=== PATIENT | male | born 1955 | race Caucasian/White ===

== ENCOUNTER 2017-12-05 11:32 | Inpatient (IN) ==
[2017-12-05] MEDS ORDERED: Aspirin 81 MG TAB.CHEW PO ONE (11:36)
[2017-12-05 11:58] LABS: Basophils # 0.1 K/mcL (0.0-0.2); Basophils % 1.1 %; Eosinophils # 0.8 K/mcL (0.0-0.6); Eosinophils % 9.9 %; Hematocrit 48.1 % (37.5-50.1); Hemoglobin 16.4 g/dL (12.9-16.9); Immature Granulocytes % 0.1 % (0-4); Lymphocytes # 3.3 K/mcL (0.6-4.6); Lymphocytes % 38.1 %; Mean Corpuscular HGB Conc 34.1 g/dL (31.6-35.5); Mean Corpuscular Hemoglobin 30.3 pg (28.0-33.3); Mean Corpuscular Volume 88.9 fL (83.0-100.0); Monocytes # 0.4 K/mcL (0.0-1.3); Monocytes % 4.8 %; Neutrophils # 3.9 K/mcL (1.6-8.9); Platelet Count 253 K/mcL (140-400); Red Blood Count 5.41 M/mcL (4.19-5.50); Red Cell Distribution Width 13.5 % (11.5-14.5)
[2017-12-05 12:12] LABS: Prothrombin Time 11.4 Seconds (9.4-12.1)
[2017-12-05 12:15] LABS: Activated Partial Thrombo Time 32.6 Seconds (26.0-36.0)
[2017-12-05 12:23] LABS: BUN/Creatinine Ratio 16 (6-26); Blood Urea Nitrogen 17 mg/dL (8-23); Calcium 9.7 mg/dL (8.6-10.3); Carbon Dioxide 25 mEq/L (23-29); Chloride 100 mEq/L (98-107); Glucose 153 mg/dL (70-105); Osmolality,Calculated 285 (280-300); Potassium 3.9 mEq/L (3.5-5.1); Sodium 135 mEq/L (136-145); Troponin I < 0.03 ng/mL (< 0.04); eGFR For Non-African Americans > 60 (> 60)
--- NOTE | 2017-12-05 12:40 | Emergency Department Note ---
Disposition Clinical Impression: History of unilateral nephrectomy Chest pain Qualifiers: Chest pain type: unspecified Qualified Code(s): R07.9 - Chest pain, unspecified Disposition: Admitted As Inpatient Condition: Good Time of Disposition: 14:18 General Adult HPI - General Chief complaint: ED Chest Pain Stated complaint: chest pain Time Seen by Provider: 12/05/17 11:35 Source: patient, EMS Mode of arrival: ambulatory Limitations: no limitations Nursing Notes Reviewed: Yes Vital Signs Reviewed: Yes - History of Present Illness HPI Narrative: 62 year old man with pmh significant for DM, HTN, HLD, GERD, and renal cell carcinoma s/p L renal resection who was transferred from [facility] today due to chest pain. He says he has been experiencing mid sternal chest pressure for a number of months with worsening HUSTON. Today, he complained of HUSTON when going up a single flight of stairs, diaphoresis, mid sternal chest pressure with occasional L arm radiation. When seen at [facility] they were concerned for need of possible cardiac cath and transferred here. He denied any diplopia, blurry vision, dizziness/lightheadedness, syncope, cough, N/V, abdominal pain, back pain, neck/jaw pain. He had previous workup this summer at [facility] with a negative lexiscan stress test but 25% pvc 24 hour holter, ECHO EF 55%. He has a long hx of reflux that many medications has worsened. He states the chest pressure does feel similar to this but his HUSTON is worse. Pt Subjective Complaint: chest pressure Onset (ago): hour(s) Location: chest (mid sternal ) Radiation: extremity (L UE) Pain Severity: mild Pain Scale: 2 Quality: other (pressure) Consistency: now resolved Improves with: rest Worsens with: movement Associated symptoms: Reports: diaphoresis, shortness of breath. Denies: cough, nausea/vomiting, syncope - Related Data Home Medications Medication Instructions Recorded Confirmed Aspirin [Adult Aspirin] 81 mg PO DAILY 12/05/17 12/05/17 Ergocalciferol (VITAMIN D2) 2,000 unit PO DAILY 12/05/17 12/05/17 [Vitamin D2] Isosorbide MONOnitrate (24 HR) 30 mg PO DAILY 12/05/17 12/05/17 [Imdur] Metoprolol Succinate [Toprol Xl] 50 mg PO DAILY 12/05/17 12/05/17 Nortriptyline HCl 50 mg PO HS 12/05/17 12/05/17 Omeprazole [PriLOSEC] 40 mg PO DAILY 12/05/17 12/05/17 Potassium Chloride [K-Tab ER] 20 meq PO BID 12/05/17 12/05/17 Simvastatin [Zocor] 20 mg PO HS 12/05/17 12/05/17 Triamterene/HCTZ 37.5/25mg 1 tab PO DAILY 12/05/17 12/05/17 [Dyazide] Allergies Allergy/AdvReac Type Severity Reaction Status Date / Time naproxen AdvReac Gastrointestinal Verified 12/05/17 11:42 Upset NSAIDS (Non-Steroidal AdvReac Gastrointestinal Verified 12/05/17 11:42 Anti-Inflamma Upset valdecoxib [From Bextra] AdvReac Gastrointestinal Verified 12/05/17 11:42 Upset All systems ED: reviewed and negative except as stated. Cardiovascular: Reports: chest pain, dyspnea on exertion. Denies: palpitations , edema, syncope Respiratory: Reports: dyspnea. Denies: cough Gastrointestinal: Denies: abdominal pain, nausea, vomiting Musculoskeletal: Denies: back pain, neck pain Neurological: Denies: weakness, numbness, paresthesias, confusion Psychiatric: Denies: anxiety Past Medical History - Past Medical History Medical history: Reports: cancer, diabetes, hypertension Psychiatric history: Reports: no psych history - Social History Smoking Status: Former smoker Smokeless Tobacco Status: No Alcohol use: Reports: occasionally Drug use: Reports: none Physical Exam - General Limitations: no limitations General appearance: alert, in no apparent distress - Head Head exam: atraumatic, normocephalic, normal inspection - Eye Eye exam: Present: normal appearance - ENT ENT exam: mucous membranes moist - Neck Neck exam: Present: normal inspection, trachea midline - Chest Chest inspection: Present: normal inspection, symmetric chest wall rise - Respiratory Respiratory exam: Present: normal lung sounds bilaterally - Cardiovascular Cardiovascular exam: Present: regular rate, normal rhythm, normal heart sounds, +S1, +S2 - Abdominal Exam Abdominal exam: Present: soft, Non-Tender, incision, hernia. Absent: distention , guarding, rebound, rigidity - Neurological Exam Neurological exam: Present: alert, oriented X3 - Psychiatric Psychiatric exam: Present: normal affect - Skin Skin exam: Present: warm, dry, intact, normal color Course Course Narrative: Previous workup at [facility] with neg lexiscan, and 25% PVC ectopy on 24hr holter. He was transferred from [facility] due to midsternal chest pressure/fullness with worsening HUSTON, diaphoresis, and occasional L arm radiation. He received 1 nitro at [facility]. Will order cardiac workup here along with 325mg ASA and IV pepcid. 1315: ECG nsr, hr 76, borderline repolarization abnormality, st dep but no acute st elevation. Trop neg, BNP 37, still complaining of chest pressure/ fullness. Declined further nitro due to severe OROPEZA when receiving nitro [place]. Will admit to hospitalist service for continued evaluation which they accepted. Vital Signs Temperature 97.5 F L 12/05/17 11:35 Pulse Rate 76 12/05/17 11:35 Respiratory Rate 14 12/05/17 11:35 Blood Pressure 124/97 12/05/17 11:35 O2 Sat by Pulse Oximetry 99 12/05/17 11:35 Temperature 98.2 F 12/05/17 15:11 Pulse Rate 69 12/05/17 15:11 Respiratory Rate 20 12/05/17 15:11 Blood Pressure 133/91 12/05/17 15:11 O2 Sat by Pulse Oximetry 94 12/05/17 15:11 Oxygen Delivery Oxygen Delivery Room Air Medical Decision Making - Lab Data Result diagrams: 12/05/17 11:50 12/05/17 11:50 Lab Results 12/05/17 12/05/17 12/05/17 Range/Units 11:50 11:50 11:50 WBC 8.5 (4.3-11.1) K/mcL RBC 5.41 (4.19-5.50) M/mcL Hgb 16.4 (12.9-16.9) g/dL Hct 48.1 (37.5-50.1) % MCV 88.9 (83.0-100.0) fL MCH 30.3 (28.0-33.3) pg MCHC 34.1 (31.6-35.5) g/dL RDW 13.5 (11.5-14.5) % Plt Count 253 (140-400) K/mcL MPV 10.0 (9.4-12.4) fL Immature Gran % 0.1 (0-4) % Seg Neutrophils % 46.0 % Lymphocytes % 38.1 % Monocytes % 4.8 % Eosinophils % 9.9 % Basophils % 1.1 % Neutrophils # 3.9 (1.6-8.9) K/mcL Lymphocytes # 3.3 (0.6-4.6) K/mcL Monocytes # 0.4 (0.0-1.3) K/mcL Eosinophils # 0.8 H (0.0-0.6) K/mcL Basophils # 0.1 (0.0-0.2) K/mcL PT 11.4 (9.4-12.1) Seconds INR 1.0 APTT 32.6 (26.0-36.0) Seconds Sodium 135 L (136-145) mEq/L Potassium 3.9 (3.5-5.1) mEq/L Chloride 100 (98-107) mEq/L Carbon Dioxide 25 (23-29) mEq/L BUN 17 (8-23) mg/dL Creatinine 1.09 (0.70-1.30) mg/dL Est GFR ( Amer) > 60 (> 60) Est GFR (Non-Af Amer) > 60 (> 60) BUN/Creatinine Ratio 16 (6-26) Glucose 153 H (70-105) mg/dL Calculated Osmolality 285 (280-300) Calcium 9.7 (8.6-10.3) mg/dL Troponin I < 0.03 (< 0.04) ng/mL B-Natriuretic Peptide (Less than 100) pg/mL 12/05/17 Range/Units 11:50 WBC (4.3-11.1) K/mcL RBC (4.19-5.50) M/mcL Hgb (12.9-16.9) g/dL Hct (37.5-50.1) % MCV (83.0-100.0) fL MCH (28.0-33.3) pg MCHC (31.6-35.5) g/dL RDW (11.5-14.5) % Plt Count (140-400) K/mcL MPV (9.4-12.4) fL Immature Gran % (0-4) % Seg Neutrophils % % Lymphocytes % % Monocytes % % Eosinophils % % Basophils % % Neutrophils # (1.6-8.9) K/mcL Lymphocytes # (0.6-4.6) K/mcL Monocytes # (0.0-1.3) K/mcL Eosinophils # (0.0-0.6) K/mcL Basophils # (0.0-0.2) K/mcL PT (9.4-12.1) Seconds INR APTT (26.0-36.0) Seconds Sodium (136-145) mEq/L Potassium (3.5-5.1) mEq/L Chloride (98-107) mEq/L Carbon Dioxide (23-29) mEq/L BUN (8-23) mg/dL Creatinine (0.70-1.30) mg/dL Est GFR ( Amer) (> 60) Est GFR (Non-Af Amer) (> 60) BUN/Creatinine Ratio (6-26) Glucose (70-105) mg/dL Calculated Osmolality (280-300) Calcium (8.6-10.3) mg/dL Troponin I (< 0.04) ng/mL B-Natriuretic Peptide 37 (Less than 100) pg/mL Attestation Statement - Attestation Attestation: I examined this patient and my medical decision-making was reviewed with the Resident Physician, Dr. Taylor. I agree with the documented findings, disposition and treatment plan as described except to the extent set forth below. Patient is a 62-year-old white male history of diabetes, hypertension, hyperlipidemia who presents seem or permit today with complaints of exertional chest pain. Patient's been experiencing these symptoms over the last few days worse with any exertion he notices specifically while climbing stairs at home. Patient was seen and evaluated the [facility] urgent [facility] and was sent here for evaluation. Patient denies any prior known cardiac event or history although he has had stress testing and Holter monitoring in the past. Patient had aspirin and 1 nitroglycerin prior to arrival to the ED with some improvement in his symptoms. I agree with patient's physical exam findings as documented. Vital signs are stable on arrival and he is in no acute distress resting comfortably at bedside during my assessment. ekg shows normal sinus rhythm without acute ischemia. Patient had full lab evaluation including chest x-ray and workup in the emergency department is in remarkable at this time. Initial troponin is negative chest x-rays within normal limits. Patient will be admitted for further evaluation of chest discomfort and case was discussed with hospitalist to accept patient for admission for further eval and management.
[2017-12-05] MEDS ORDERED: Famotidine 20 MG/2 ML VIAL IVP ONE (13:09)
[2017-12-05] MEDS ORDERED: MOM Conc 10 ML UD.LIQ PO PRN (14:02)
[2017-12-05] MEDS ORDERED: OXYCODONE Oral CONC 10 MG/0.5 ML ORAL.SYG SL PRN (14:02)
[2017-12-05] MEDS ORDERED: Naloxone 0.4 MG/ML INJ IVP PRN (14:02)
[2017-12-05] MEDS ORDERED: *HR* HYDROcodone/Acet 5/325 mg TABLET PO PRN (14:02)
[2017-12-05] MEDS ORDERED: Acetaminophen 325 MG TABLET PO PRN (14:02)
[2017-12-05] MEDS ORDERED: Ondansetron 4 MG/2 ML VIAL IVP PRN (14:02)
--- NOTE | 2017-12-05 14:09 | Internal Med History&Physical ---
Date of Encounter: 12/05/17 Time of Encounter: 14:58 Internal Medicine - H&P: HPI History of present illness: 62 year old man with past medical history of diabetes, hypertension, hyperlipidemia, renal cell carcinoma with left renal resection, presented as a transfer from [facility] for further workup of chest pain. Patient states this has been ongoing for several months mostly with exertion. Described as a pressure- like sensation located substernally that does not radiate, and lasts for seconds at a time. He admits to diaphoresis and occasionally palpitations. He denies n/v, orthopnea, edema, headache. He recently had Lexiscan done which patient and states were indeterminate. At [facility], patient received dose of nitro, which he tells me did not alleviate any of his symptoms. On arrival to [facility] patient had EKG showing NSR with ST depressions, no acute ST elevateions. Initial troponin negativ, BNP wnl, chest x-ray shows no acute process. He was given 325 mg aspirin and IV pepcid. Patient states currently he is chest pain free. Past Med Surg Social Fam HX - Past Medical History Medical history: cancer, diabetes, hypertension Psychiatric history: no psych history - Past Surgical History Additional surgical history: kidney removed - Social History Smoking Status: Former smoker Smokeless Tobacco Status: No Alcohol use: occasionally Drug use: none Internal Medicine - H&P: Meds Aspirin [Adult Aspirin] 81 mg PO DAILY 12/05/17 [History] Ergocalciferol (VITAMIN D2) [Vitamin D2] 2,000 unit PO DAILY 12/05/17 [History] Isosorbide MONOnitrate (24 HR) [Imdur] 30 mg PO DAILY 12/05/17 [History] Metoprolol Succinate [Toprol Xl] 50 mg PO DAILY 12/05/17 [History] Nortriptyline HCl 50 mg PO HS 12/05/17 [History] Omeprazole [PriLOSEC] 40 mg PO DAILY 12/05/17 [History] Potassium Chloride [K-Tab ER] 20 meq PO BID 12/05/17 [History] Simvastatin [Zocor] 20 mg PO HS 12/05/17 [History] Triamterene/HCTZ 37.5/25mg [Dyazide] 1 tab PO DAILY 12/05/17 [History] 3 Allergy/AdvReac Type Severity Reaction Status Date / Time naproxen AdvReac Gastrointestinal Verified 12/05/17 11:42 Upset NSAIDS (Non-Steroidal AdvReac Gastrointestinal Verified 12/05/17 11:42 Anti-Inflamma Upset valdecoxib [From Bextra] AdvReac Gastrointestinal Verified 12/05/17 11:42 Upset All Systems PM: A 10-system review of systems was performed and is negative for pertinent findings except as documented above in the HPI. - Constitutional Vitals: Temp Pulse Resp BP Pulse Ox 97.5 F L 74 20 118/87 99 12/05/17 11:35 12/05/17 13:00 12/05/17 13:00 12/05/17 13:00 12/05/17 13:00 General appearance: Present: A&O X 3, no acute distress, obese Exam: . - Head Head exam: Present: atraumatic, normocephalic - Eye Eye exam: Present: PERRL, conjuntiva pink, sclera anicteric Pupils: Present: PERRL - Neck Neck exam general surgery: Present: supple, trachea midline. Absent: lymphadenopathy - Respiratory Respiratory exam: Present: CTAB. Absent: accessory muscle use, rales, rhonchi, wheezes - Cardiovascular Cardiovascular exam: Present: RRR, +S1, +S2. Absent: diastolic murmur, gallop, rubs, systolic murmur - GI/Abdominal GI/Abdominal exam: Present: normal bowel sounds, soft, no peritoneal signs. Absent: distended, tenderness - Extremities Exam Extremities exam: Present: warm, radial pulses palpable and symmetrical. Absent : calf tenderness, cyanotic, pedal edema - Neurological Exam Neurological exam: Present: CN II-XII intact, oriented X3, no focal deficits. Absent: pronater drift, facial droop, speech deficit - Skin Skin exam: Present: dry, intact Internal Med - H&P Results - Labs CBC & Chem 7: 12/05/17 11:50 12/05/17 11:50 - Assessment and plan (1) Chest pain Current Visit: Yes Status: Acute Assessment and plan: rule out ACS - Continue telemetry monitoring - Aspirin daily - Cycle troponin, currently negative x1 here at [facility] - Defer Echocardiogram and Lexiscan as they were recently done. May need C done instead. - Consult Cardiology, make NPO after midnight. - Nitro prn Qualifiers: Chest pain type: unspecified Qualified Code(s): R07.9 - Chest pain, unspecified (2) Hypertension Current Visit: Yes Status: Acute Assessment and plan: Metoprolol, Dyazide Qualifiers: Hypertension type: essential hypertension Qualified Code(s): I10 - Essential (primary) hypertension (3) Diabetes Current Visit: Yes Status: Acute Assessment and plan: No hypoglycemic agents listed on home meds - will do cardiac/diabetic diet with ISS. Qualifiers: Diabetes mellitus type: type 2 Diabetes mellitus group home insulin use: without group home use Diabetes mellitus complication status: without complication Qualified Code(s): E11.9 - Type 2 diabetes mellitus without complications (4) H/O renal cell carcinoma Current Visit: Yes Status: Acute (5) Hyperlipidemia Current Visit: Yes Status: Acute Assessment and plan: Zocor, aspirin, cardiac diet Qualifiers: Hyperlipidemia type: unspecified Qualified Code(s): E78.5 - Hyperlipidemia , unspecified (6) GERD (gastroesophageal reflux disease) Current Visit: Yes Status: Acute Qualifiers: Esophagitis presence: esophagitis presence not specified Qualified Code(s) : K21.9 - Gastro-esophageal reflux disease without esophagitis (7) History of unilateral nephrectomy Current Visit: Yes Status: Acute (8) DVT prophylaxis Current Visit: Yes Status: Acute Assessment and plan: SQ heparin - Time Spent With Patient Total time spent is greater than 50% in coordination of care (as documented) at patient's floor/unit and/or counseling patient:
[2017-12-05] MEDS: Insulin LISPRO 300 UNITS/3 ML VIAL SQ SCH ×2 (17:35→21:26)
[2017-12-05] MEDS: *HR* Heparin 5,000 UNIT/ML VIAL SQ SCH (17:35)
[2017-12-06] MEDS: *HR* Heparin 5,000 UNIT/ML VIAL SQ SCH ×2 (05:23→22:08)
[2017-12-06 06:01] LABS: BUN/Creatinine Ratio 16 (6-26); Blood Urea Nitrogen 17 mg/dL (8-23); Calcium 9.7 mg/dL (8.6-10.3); Carbon Dioxide 23 mEq/L (23-29); Chloride 99 mEq/L (98-107); Glucose 164 mg/dL (70-105); Osmolality,Calculated 287 (280-300); Potassium 3.7 mEq/L (3.5-5.1); Sodium 136 mEq/L (136-145); eGFR For Non-African Americans > 60 (> 60)
[2017-12-06] MEDS: Insulin LISPRO 300 UNITS/3 ML VIAL SQ SCH ×3 (07:29→22:07)
[2017-12-06] MEDS: Aspirin 81 MG TAB.CHEW PO SCH (07:40)
[2017-12-06] MEDS: Metoprolol XL (24 HR) Succ 50 MG TAB.ER.24H PO SCH (07:40)
[2017-12-06] MEDS: Isosorbide MONOnitrate (24 HR) 30 MG TAB.ER.24H PO SCH (07:40)
[2017-12-06] MEDS: Cholecalciferol (D-3) 1,000 UNIT TABLET PO SCH (07:40)
--- NOTE | 2017-12-06 08:59 | Electrocardiograph Report ---
[facility] AngioSlide Test Date: 2017-12-05 Pat Name: Alex Cheatham Department: EXAM2 Room: 3B39 Gender: M Desktop Support Manager: : [id number] Requested By: Dg Wayne Order Number: [id number] Reading MD: Reuben Day Measurements Intervals [place] Rate: 76 P: 29 LA: 165 QRS: -12 QRSD: 104 T: 103 QT: 407 QTc: 458 Interpretive Statements Sinus rhythm Borderline repolarization abnormality Electronically Signed On 12-06-2017 8:57:35 EDT by Reuben Day
--- NOTE | 2017-12-06 11:05 | Cardiology Consult Note ---
Date of Encounter: 12/06/17 Time of Encounter: 11:00 Assessment and Plan (1) Unstable angina Current Visit: Yes Status: Acute Mr. Cheatham presents with the c/o ongoing typical chest pain, SOB, and diaphoresis for three weeks. Symptoms concerning for unstable angina. Troponin negative x3. EKG shows NSR with no acute T/ST wave changes. Stress 09/2016 here was negative for ischemia. Stress test in September at [place] with equivocal results per patient. Cardiac risk factors include HTN, HLD, DM, and prior tobacco use. [facility] recommended for further evaluation. R/B/A of [facility] reviewed. He would like to proceed. Notes solitary kidney. Scr is normal. WIll start IV fluid and mucomyst as a renal protective strategy. (2) History of unilateral nephrectomy Current Visit: Yes Status: Chronic Start mucomyst and IV fluid for renal protective strategy. (3) Hypertension Current Visit: Yes Status: Chronic B/p acceptable. Qualifiers: Hypertension type: essential hypertension Qualified Code(s): I10 - Essential (primary) hypertension Discussion w patient/family: The assessment and plan as outlined above was discussed with the patient and/or family members who expressed understanding and agreement. All questions were answered. Thank you for involving us in the care of your patient. Please call with any questions. History of Present Illness Consult date: 12/06/17 Requesting physician: Kait Dykes Consult reason: Chest pain Chief complaint: chest discomfort History of present illness: Mr. Cheatham is a 62 year old male with past medical history significant for HTN, HLD, DM type II, and prior tobacco use. He transferred from the [facility] hospital with the c/o intermittent chest pressure for the past three weeks. C/o pain and SOB with exertion. States after climbing stairs yesterday he broke out in a cold sweat. He denies prior history of CAD. He underwent stress test at the [facility] in September that was indeterminate. Past Med Surg Social Fam HX - Past Medical History Attestation: Yes The following information was validated with the patient. Source: patient Medical history: cancer, diabetes, hyperlipidemia, hypertension Additional medical history: renal cell cancer Psychiatric history: no psych history - Past Surgical History Additional surgical history: kidney removed - Social History Smoking Status: Former smoker Smokeless Tobacco Status: No Alcohol use: occasionally Drug use: none - Family History Father Living Status: Hx Family Cardiac Disorders: Yes Medications and Allergies Aspirin [Adult Aspirin] 81 mg PO DAILY 12/05/17 [History] Ergocalciferol (VITAMIN D2) [Vitamin D2] 2,000 unit PO DAILY 12/05/17 [History] Isosorbide MONOnitrate (24 HR) [Imdur] 30 mg PO DAILY 12/05/17 [History] Metoprolol Succinate [Toprol Xl] 50 mg PO DAILY 12/05/17 [History] Nortriptyline HCl 50 mg PO HS 12/05/17 [History] Omeprazole [PriLOSEC] 40 mg PO DAILY 12/05/17 [History] Potassium Chloride [K-Tab ER] 20 meq PO BID 12/05/17 [History] Simvastatin [Zocor] 20 mg PO HS 12/05/17 [History] Triamterene/HCTZ 37.5/25mg [Dyazide] 1 tab PO DAILY 12/05/17 [History] 3 Allergy/AdvReac Type Severity Reaction Status Date / Time naproxen AdvReac Gastrointestinal Verified 12/05/17 11:42 Upset NSAIDS (Non-Steroidal AdvReac Gastrointestinal Verified 12/05/17 11:42 Anti-Inflamma Upset valdecoxib [From Bextra] AdvReac Gastrointestinal Verified 12/05/17 11:42 Upset All Systems Review: The remainder of the systems were reviewed and are negative Physical Examination Vital Signs, Last 4 Hours Temp Pulse Resp BP Pulse Ox 12/06/17 10:58 98.7 F 68 15 122/78 95 General: Conversant, No Apparent Distress HEENT: Atraumatic, Normocephaly, Mucus Membranes Moist Neck: No JVD, Normal carotid pulses Cardiac: Reg Rate and Rhythm, Normal S1 and S2, No Murmur Lungs: Normal Breath Sounds, No Wheeze, Rales, Rhonchi Neuro: Alert and responsive, No focal deficits noted Abdomen: Soft, Non-Tender Skin: No rashes noted on visualized skin Musculoskeletal: No Chest Wall Tenderness Extremities: No Clubbing, No Cyanosis, No Edema, Normal Pulses Results 12/05/17 11:50 12/06/17 04:17 Lab Results 12/05/17 12/06/17 17:45 04:17 Sodium 136 Potassium 3.7 Chloride 99 Carbon Dioxide 23 BUN 17 Creatinine 1.07 Glucose 164 H Calcium 9.7 Troponin I < 0.03 - Imaging and Cardiology Stress Test: report reviewed Echo: report reviewed - EKG Interpretation EKG results cardiology: personally reviewed Consult Discharge Plan - Plan [facility]errals: [facility] [Primary Care Provider] -
[2017-12-06] MEDS: 0.9 % Sodium Chloride 1,000 ML IVC SCH ×3 (12:46→22:30)
--- NOTE | 2017-12-06 13:06 | Internal Med Progress Note ---
Hospitalist Progress Note - Encounter Date of Encounter: 12/06/17 Time of Encounter: 13:04 - Exam Vitals: Temp Pulse Resp BP Pulse Ox 98.7 F 68 15 122/78 95 12/06/17 10:58 12/06/17 10:58 12/06/17 10:58 12/06/17 10:58 12/06/17 10:58 Exam: . - Assessment and Plan (1) Chest pain Current Visit: Yes Status: Acute Assessment and Plan: rule out ACS - Continue telemetry monitoring - Aspirin daily - Cycle troponin, currently negative x1 here at [facility] - Defer Echocardiogram and Lexiscan as they were recently done. May need LHC done instead. - Consult Cardiology, make NPO after midnight. - Nitro prn 12/06: patient agrees to [facility], anticipate today (2) Hypertension Current Visit: Yes Status: Chronic Assessment and Plan: Metoprolol, Dyazide (3) Diabetes Current Visit: Yes Status: Acute Assessment and Plan: No hypoglycemic agents listed on home meds - will do cardiac/diabetic diet with ISS. (4) H/O renal cell carcinoma Current Visit: Yes Status: Acute (5) Hyperlipidemia Current Visit: Yes Status: Acute Assessment and Plan: Zocor, aspirin, cardiac diet (6) GERD (gastroesophageal reflux disease) Current Visit: Yes Status: Acute (7) History of unilateral nephrectomy Current Visit: Yes Status: Chronic (8) DVT prophylaxis Current Visit: Yes Status: Acute Assessment and Plan: SQ heparin - Time Spent with Patient Total time spent is greater than 50% in coordination of care (as documented) at patient's floor/unit and/or counseling patient: Internal Medicine: Result - Labs CBC & Chem 7: 12/05/17 11:50 12/06/17 04:17 Labs: BMP 12/06/17 04:17 Sodium 136 Potassium 3.7 Chloride 99 Carbon Dioxide 23 BUN 17 Creatinine 1.07 Glucose 164 H Calcium 9.7 Cardiac Enzymes 12/05/17 Range/Units 17:45 Troponin I < 0.03 (< 0.04) ng/mL - ABG Interpretation ABG results: PT/INR, D-dimer PT 11.4 Seconds (9.4-12.1) 12/05/17 11:50 Consult Discharge Plan - Plan [facility]errals: [facility] [Primary Care Provider] - (1) Chest pain Qualifiers: Chest pain type: unspecified Qualified Code(s): R07.9 - Chest pain, unspecified (2) Hypertension Qualifiers: Hypertension type: essential hypertension Qualified Code(s): I10 - Essential (primary) hypertension (3) Diabetes Qualifiers: Diabetes mellitus type: type 2 Diabetes mellitus intermodal owner operator truck driver insulin use: without intermodal owner operator truck driver use Diabetes mellitus complication status: without complication Qualified Code(s): E11.9 - Type 2 diabetes mellitus without complications (5) Hyperlipidemia Qualifiers: Hyperlipidemia type: unspecified Qualified Code(s): E78.5 - Hyperlipidemia, unspecified (6) GERD (gastroesophageal reflux disease) Qualifiers: Esophagitis presence: esophagitis presence not specified Qualified Code(s): K21.9 - Gastro-esophageal reflux disease without esophagitis
[2017-12-06] MEDS ORDERED: 0.9 % Sodium Chloride 1,000 ML ONE (16:16)
[2017-12-06] MEDS ORDERED: Heparin 1,000 UNITS/500 mL 500 ML ONE (16:16)
[2017-12-06] MEDS ORDERED: ISOVUE-370 200 ML INFUS..BTL IV ONE (16:17)
[2017-12-06] MEDS ORDERED: *HR* Heparin 10,000 UNIT/10 ML VIAL ONE (16:17)
[2017-12-06] MEDS ORDERED: Nitroglycerin 1,000 MCG/10 ML VIAL IV ONE (16:17)
[2017-12-06] MEDS ORDERED: *HR* Midazolam HCl 2 MG/2 ML VIAL ONE (16:46)
--- NOTE | 2017-12-06 16:47 | Pre-Sedation Evaluation ---
Pre-sedation evaluation - Pre-sedation checklist Date of procedure: 12/06/17 Procedure: [facility] Recent Vitals: Last Vital Signs Temp 98.7 F 12/06/17 10:58 Pulse 68 12/06/17 10:58 Resp 15 12/06/17 10:58 BP 122/78 12/06/17 10:58 Pulse Ox 95 12/06/17 10:58 H&P (including ROS) documented in medical record: Yes Previous reaction to sedatives/anesthetics: No Dietary Status: NPO after Midnight Airway Assessment: Patient can open mouth completely, TMJ function normal Dentition: No loose teeth or bridges Possible difficult airway: No ASA Classification *see protocol: CLASS III-Severe systemic disease Cardiac Registry (Cardio Only) - Functional Capacity Functional Capacity: >=4 METS without symptoms - Clincal Frailty Scale Clinical Frailty Scale: Well
[2017-12-06] MEDS ORDERED: *HR* Ticagrelor 90 MG TABLET ONE (17:32)
--- NOTE | 2017-12-06 18:19 | Invasive Diagnostic Lab Proc ---
Name: Alex Cheatham Date of Study: 12/06/2017 Date: 1955 Ht: 72.8in Medical Record#: [id number] Age: 62 Wt: 253.53lb Gender: Male BSA: 2.38 Order #: [id number] BMI: 33.6 Physicians Procedure Physician: Mitch Edwards DO Referring MD: Referring MD: Staff Name Position Time In Ketan Knox RN Cut And Print Machine Operator 04:44 PM Eliceo Chandler RN Monitor 04:44 PM Sites, Elaine RT (R) Scrub 04:44 PM Indications Indication Unstable Angina Procedures Performed Procedure L HRT ARTERY/VENTRICLE ANGIO PRQ CARD TWIN STENT W/ANGIO 1 VSL Pre-Procedure Checklist Informed consent is complete signed and on chart. H&P is on chart. ID band is on and ID verified with patient. Patient NPO for procedure The procedure was described for the patient and questions were answered. Blood Pressure: 142/87 ECG is on chart. Rhythm: NSR Plan of Care Patient will tolerate the procedure without complications. Adequate level of comfort will be maintained. Hemodynamics will remain stable Patient will recover from procedure without complications. Respiratory function will be maintained. Cardiac rhythm will remain stable. Patient temperature will be maintained. Patient and/or family have verbalized understanding of the procedure. Patient Education Chief Complaint/Reason for Test: Cardiac Cath Developmental Category: Adult (18-64 years) Developmentally Appropriate for Age: Yes Learning Barriers: None Education Needs: Procedure Education Method: Verbal Information Taught: Cardiac Cath Educational Evaluation: Able to repeat information Intravenous Access Time IV Size Location DC'd Fluid/Drip Rate Units RN 20g 1 03/08" Patent On Arrival Rt Hand 0.9NaCl Ketan Knox RN Allergies NSAIDS (Non-Steroidal Anti-Inflamma naproxen valdecoxib Vital Signs Time BP (mmHg) HR (bpm) O2 Sat. RR (bpm) LOC 04:45 PM / % 5 = Fully awake and oriented or at pre-proc level 04:51 PM / % 5 = Fully awake and oriented or at pre-proc level 04:51 PM / % 4 = Oriented but drowsy 04:48 PM 111 / 93 79 98 % 14 04:53 PM 123 / 105 90 100 % 13 04:59 PM 154 / 100 85 96 % 21 05:03 PM 150 / 94 84 96 % 36 05:08 PM 146 / 94 86 94 % 30 05:13 PM 147 / 128 87 96 % 20 05:14 PM 158 / 112 83 96 % 30 05:20 PM 133 / 100 100 95 % 16 05:40 PM 134 / 91 86 96 % 20 5 = Fully awake and oriented or at pre-proc level 06:00 PM 147 / 109 84 94 % 18 5 = Fully awake and oriented or at pre-proc level 06:10 PM 156 / 82 84 95 % 18 5 = Fully awake and oriented or at pre-proc level Procedural Medications Time Medication Dose Units Method Given By 04:45 PM Oxygen 2 L/min nasal cannula Ketan Knox RN 04:50 PM Oxygen 2 L/min nasal cannula Ketan Knox RN 04:50 PM Versed 2 mg Intravenous Ketan Knox RN 05:02 PM Lidocaine 2% 10 ml Subcutaneous Mitch Edwards DO 05:12 PM Heparin 4000 units Intravenous Ketan Knox RN 05:17 PM Nitroglycerin 200 mcg Intracoronary Mitch Edwards DO 05:22 PM Brilinta 180 mg Orally Ketan Knox RN ASA Classification: CLASS III- Severe systemic disease (i.e. prior AMI, diabetes with vascular complications, morbid obesity) Chan Score Preprocedure Postprocedure Activity 2- Moves 4 extremities sustained head lift Activity 2- Moves 4 extremities sustained head lift Circulation 2- SBP +/= 20 points of pre-anesthetic level Circulation 2- SBP +/= 20 points of pre-anesthetic level Consciousness 2- Awake and alert oriented x 3 Consciousness 2- Awake and alert oriented x 3 O2 Saturation 2- Able to maintain O2 satruation of 92% on room air O2 Saturation 2- Able to maintain O2 satruation of 92% on room air Respiratory 2- Able to deep breathe and cough well Respiratory 2- Able to deep breathe and cough well Total Score 10 Total Score 10 Contrast Agent: Isovue Diagnostic Contrast: 70 ml Total Contrast: 70 ml Fluoro Dose: 7323 mGy Activated Clotting Time Time Seconds to Clot 05:12 PM 91 05:26 PM 205 Procedure Log Time Note Enter By 04:42 PM CathStat 04:43 PM Vitals capture started with the following parameters, Patient=Adult, Interval=5 min, Initial Jfrgiafu=161 mmHg, Deflation Rate=5 mmHg, Cuff placed on Right Arm 04:44 PM Pt arrived to outside laborer 2 at 16:44 [facility] 04:44 PM Ketan Knox RN Position: Cut And Print Machine Operator [facility]: 16:44 [facility] 04[facility]44 PM Eliceo Chandler RN Position: Monitor Time in: :44 [facility] 04:44 PM Diane, Elaine RT (R) Position: Scrub Time in: 16:44 [facility] 04:44 PM Patient charges- Angio tray pack, Navilyst 3mm J, Pulse Oximetry and ACIST tubing and transducer [facility] 04:45 PM Hair removed from procedure site in holding area using clippers. Bilateral groin prepped with Chloraprep by Ketan Knox RN, then patient was draped. Skin intact. [facility] 04:45 PM Physician arrived 16:45 [facility] :45 PM Meet and greet completed [facility] :45 PM Sign in performed according to hospital policy. Informed consent was obtained. [facility] 04:45 PM Procedure start 16:45 [facility] :45 PM Time: 16:45 Patient comfortable and pain free: Yes [facility] :45 PM Time: 16:45LOC: 5 = Fully awake and oriented or at pre-proc level [facility] 04:45 PM Time: 16:45 Oxygen on at 2 L/min per nasal cannula by Ketan Knox RN [facility] 04:47 PM Case Start 04:47 PM Vitals capture started with the following parameters, Patient=Adult, Interval=5 min, Initial Qptdkrez=888 mmHg, Deflation Rate=5 mmHg, Cuff placed on Right Arm 04:48 PM HR=79 bpm, CUDD=978/93 mmhg, SpO2=98 %, Resp=14 B/min 04:50 PM Time: 16:50 Oxygen on at 2 L/min per nasal cannula by Ketan Knox RN [place] 04:51 PM Time: 16:50 Versed 2 mg Intravenous Given by Ketan Knox RN [place] 04:51 PM Time: 16:51 Patient comfortable and pain free: Yes [place] 04:51 PM Time: 16:51LOC: 5 = Fully awake and oriented or at pre-proc level [place] 04:53 PM HR=90 bpm, BHBI=316/105 mmhg, RbW9=819 %, Resp=13 B/min 04:54 PM Recorded ECG: HR=85 Condition=Condition 1 04:57 PM ASA Class CLASS III- Severe systemic disease (i.e. prior AMI, diabetes with vascular complications, morbid obesity) ced 04:57 PM Clinical Presentation: Unstable angina cedwards 04:59 PM HR=85 bpm, AXLT=885/100 mmhg, SpO2=96.0 %, Resp=21 B/min 05:01 PM Time out was performed according to hospital policy. Conscious sedation and anesthesia was achieved (see medication log with in this report above) ced 05:03 PM Time: 17:02 10 ml Lidocaine 2% to right groin Subcutaneous Given by Mitch Edwards DO ced 05:03 PM HR=84 bpm, AMSZ=114/94 mmhg, SpO2=96.0 %, Resp=36 B/min 05:03 PM Micro-Introducer Kit utilized for sheath placement cedwards 05:04 PM Access obtained by percutaneous puncture. 6Fr 10cm Terumo [place] sheath placed in right Femoral artery. [id number] cedwards 05:05 PM 6Fr FR 4 catheter inserted over the wire [facility] ced 05:05 PM 0.035 145cm Navilyst 3mmJ wire [id number] cedwards 05:05 PM Catheter crossed the aortic valve and was selectively placed in the left ventricle. Pressures recorded on pullback for left heart catheterization. cedwards 05:06 PM Recorded Pressure: LV, HR=85, Condition=Condition 1 (Left Ventricle) LV 51/-1/0 05:06 PM Recorded Pressure: LV, Ao, HR=93, Condition=Condition 1 (Left Ventricle) LV 122/-10/6, (Aorta) Ao 123/58/90 05:06 PM Time: 16:51LOC: 4 = Oriented but drowsy cedwards 05:06 PM Time: 16:51 Patient comfortable and pain free: Yes cedwards 05:06 PM Catheter crossed the aortic valve and was selectively placed in the left ventricle. Pressures recorded on pullback for left heart catheterization. ced 05:06 PM Bolus angiogram of left Ventricle complete: hand injection cedwards 05:07 PM RCA angiography performed in multiple views. cedwards 05:07 PM Catheter removed cedwards 05:07 PM 6Fr FL 4 catheter inserted over the wire [facility] cedwards 05:07 PM Recorded Pressure: Ao, HR=85, Condition=Condition 1 (Aorta) Ao 138/84/108 05:08 PM LCA angiography performed in multiple views. cedwards 05:08 PM HR=86 bpm, DIAH=185/94 mmhg, SpO2=94.0 %, Resp=30 B/min 05:09 PM Catheter removed cedwards 05:10 PM Coronary Dominance: right cedwards 05:11 PM 6Fr JL4 Runway guide catheter was used to cannulate the PCI vessel successfully. reused? No cedwards 05:11 PM .014 ChoICE PT Extra Support 300cm guide wire across target lesion- successful. reused? No cedwards 05:12 PM At 17:12 the ACT was 91 seconds. cedwards 05:12 PM Time: 17:12 Heparin 4000 units Intravenous Given by Ketan Knox RN cedwards 05:13 PM Inflation device was opened. cedwards 05:13 PM HR=87 bpm, BHIQ=506/128 mmhg, SpO2=96.0 %, Resp=20 B/min 05:14 PM 3.5mm x 15mm Cordis EluNIR drug-eluting stent across target lesion- successful Lot #[id number] cedwards 05:14 PM Vitals capture stopped. 05:14 PM Vitals capture started with the following parameters, Patient=Adult, Interval=5 min, Initial Glmjcpuk=322 mmHg, Deflation Rate=5 mmHg, Cuff placed on Right Arm 05:14 PM HR=83 bpm, XYTP=934/112 mmhg, SpO2=96.0 %, Resp=30 B/min 05:14 PM Lesion found in Mid LAD. Pre Stenosis: 85 Pre KARINA Flow: 3: Complete and Brisk Flow/Perfusion cedwards 05:16 PM Stent deployed @ 14 keith for 20 seconds cedwards 05:17 PM Recorded Pressure: Ao, HR=85, Condition=Condition 1 (Aorta) Ao 68/68/68 05:17 PM Recorded Pressure: Ao, HR=82, Condition=Condition 1 (Aorta) Ao 148/89/116 05:17 PM Stent delivery system removed intact. cedwards 05:17 PM Time: 17:17 Nitroglycerin 200 mcg Intracoronary Given by Mitch Edwards DO cedwards 05:18 PM Guide wire removed intact. cedwards 05:19 PM Guide catheter removed intact. cedwards 05:19 PM Angiogram of right groin performed cedwards 05:20 PM LP=036 bpm, FZUI=218/100 mmhg, SpO2=95.0 %, Resp=16 B/min 05:22 PM Time: 17:06 Patient comfortable and pain free: Yes cedwards 05:22 PM Time: 17:22 Brilinta 180 mg Orally Given by Ketan Knox RN cedwards 05:22 PM Procedure completed at 17:22 12/06/2017 cedwards 05:22 PM Did you address KARINA flow and Dominance? Yes cedwards 05:23 PM Sign out completed: Radiation Dose 749 mGy, 7322.72 cGy/cm2 Fluoro Time: 3.6 Isovue 370 - 200ml contrast 70 ml given by Mitch Edwards DO. Complications: None. 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 Cardiac Rehab Consult needed: YesConfirmed administered medications: Yes cedwards 05:23 PM Isovue 370 - 200ml,1 Bottle(s) used. cedwards 05:23 PM Sheath left in place to be pulled on floor/holding areaV+Pad cedwards 05:23 PM Estimated Blood Loss: minimal cedwards 05:23 PM Post ECG NSR cedwards 05:23 PM Post Blood Pressure 133/100 cedwards 05:23 PM Information taught Cardiac Cath and PCI cedwards 05:24 PM 17:24 Post Pulses Bilateral DP 1+ cedwards 05:24 PM Information taught Cardiac Cath and PCI cedwards 05:24 PM Education needs Procedure, Plan of Care, and Disease Process cedwards 05:24 PM Learning barriers :None cedwards 05:24 PM Education Methods Verbal cedwards 05:24 PM Education evaluation Able to repeat information cedwards 05:24 PM Site status No bleeding/hematoma - Rt Groin as reported by Sites, Elaine RT (R) at 17:24 cedwards 05:24 PM Opsite applied cedwards 05:26 PM Report given to Clint SAM Pt taken to Holding room Room #4. 17:25 cedwards 05:26 PM At 17:26 the ACT was 205 seconds. cedwards 05:26 PM Family placed in consult room. cedwards 05:26 PM Complications: None cedwards 05:37 PM Time: 17:22 Patient comfortable and pain free: Yes cedwards 06:06 PM report called to Eduard Live RN mprater 06:11 PM Delay to floor Bed availability kwitte 06:11 PM Report given to Justine SAM Pt taken to Holding room Room #[id number]. 18:11 kwitte 06:11 PM Complications: None kwitte 06:11 PM Patient out of room: 18:11 kwitte Complications Complication None None None Hemodynamics Pressures Site Systolic/A Wave Diastolic/V Wave Mean LV 51 -1 0 LV 122 -10 6 AO 123 58 90 AO 138 84 108 AO 68 68 68 AO 148 89 116 Post Procedure Information Blood Pressure: 133/100 mmHg Rhythm: NSR Post procedural instructions were given Site Checks Time Location Status Staff Sheath In? Note 05:24 PM Rt Groin No bleeding/hematoma Sites, Elaine RT (R) Yes 05:40 PM Rt Groin No bleeding/ No Hematoma Clint Live RN Yes 06:00 PM Rt Groin No bleeding/ No Hematoma Teressa Johnston RN Yes 06:10 PM Rt Groin No bleeding/ No Hematoma Clint Live RN Yes Pulses Time Site Pre-Procedure Post-Procedure Note Bilateral DP & PT 1+ Bilateral radial 2+ 5:24:00 PM Bilateral DP 1+ 12/06/2017 5:40:00 PM Bilateral DP 1+ 12/06/2017 6:00:00 PM Bilateral DP 1+ Updated by Clint Live RN on 12/06/2017 6:12:13 PM Clint Live RN electronically signed on 12/06/2017 6:12:36 PM with status of Final
[2017-12-06] MEDS ORDERED: *HR* Atropine Sulfate 1 MG/10 ML SYRINGE ONE (20:01)
[2017-12-06] MEDS: Nitroglycerin 0.4 MG TAB.SUBL SL PRN ×3 (21:27→22:19)
[2017-12-06] MEDS ORDERED: *HR* Morphine 2 MG/ML SYRINGE IVP ONE (21:30)
[2017-12-06] MEDS ORDERED: *HR* Metoprolol 5 MG/5 ML VIAL IVP ONE ×2 (21:33→21:42)
[2017-12-06] MEDS ORDERED: *HR* LORazepam 0.5 MG TABLET PO ONE (22:28)
[2017-12-06] MEDS ORDERED: *HR* LORazepam 0.5 MG TABLET ONE (22:37)
--- NOTE | 2017-12-06 23:01 | Event Note ---
<Júnior Pinedo - Last Filed: 12/06/17 22:52> Date of Encounter: 12/06/17 Time of Encounter: 22:52 At approximately 9:35 PM I was alerted by the FILM COLOR TESTER and nurse that the patient was having chest pain and hypertension. Patient had returned from [facility] at approximately 5:30 PM this afternoon where he had a single stent placed to the mid LAD. Upon evaluation the patient was having substernal chest pain that he described as an aching pressure and did report that it felt different than his initial chest pain. He rated this pain 5 out of 10. He also reported feeling like he had to urinate severely. Full catheter was placed and approximately 1 L of urine was returned. Systolic blood pressure was noted to be in the 160s, previously it had been in the 190s and patient had received 10 mg of hydralazine prior to my arrival. EKG was obtained and previous EKGs were reviewed including the presentation EKG as well as an EKG performed at 645, and another one at 8:30 PM. EKGs revealed worsening ST depression of the lateral leads particularly V3 through V6. Given the patient's symptoms and EKG findings we are concern for myocardial ischemia. The case was discussed with the attending physician Dr. Traylor and at that time we contacted the per diem interpreter, Dr. Edwarsd. Dr. Edwards recommended that we treat his chest pain with sublingual nitroglycerin and Lopressor 5 mg IV and call him back in 15 minutes. Pressor was given which improved the patient's blood pressure and after initial sublingual nitrate dose his chest pain had initially resolved but then quickly returned however he did state that it was improved from previous, he rated it a 1-2 out of 10. Patient received 2 more doses of sublingual nitroglycerin however his pain was unchanged and remained about a 1 out of 10. During this time. 2 more EKGs were obtained which were unchanged from previous and continued to show ST depression approximately 4 mm in leads V3 through V6. At this point the attending physician, Dr. Traylor, transmitted the EKGs to Dr. Edwards for him to review and spoke to him. He recommended pulling the patient's right groin catheter sheath and in 4 hours starting low-dose heparin infusion per [facility] protocol. Dr. Edwards also recommended treating anxiety with lorazepam, he was given lorazepam 0.5 mg orally. We will continually monitor the patient's symptoms and if patient has worsening chest pain will discuss further with interventional cardiology. <Calvin Traylor - Last Filed: 12/07/17 00:06> Date of Encounter: 12/07/17 I discussed the case with Dr. Pinedo, and shortly after his discussion with me , I came to the bedside and assessed the patient. I reviewed his EKGs and assessed and reassessed the patient several times. I also spoke with Dr. Edwards a couple times and transmitted EKG to him for his review as well. He agrees with my concerns and states that we can continue to control his chest pain and start heparin drip 4 hours after pulling the sheath. Presently, patient's chest pain is 1 out of 10, and he feels much better after the nitroglycerin. I spoke with patient's nurse, patient, and with Dr. Edwards as well. If patient has any worsening chest pain or unstable angina, I will call Dr. Edwards back for further guidance and advice. Presently, however, patient feels much better and he is steadily improving.
[2017-12-07] MEDS: *HR* Acetylcysteine 20% 600 MG/3 ML ORAL SYRINGE PO SCH ×4 (00:17→21:45)
[2017-12-07] MEDS: *HR* Ticagrelor 90 MG TABLET PO SCH ×3 (00:31→21:43)
[2017-12-07] MEDS ORDERED: Heparin 25,000 UNIT/500 ML D5W 25,000 UNIT/500 ML BAG IVC SCH (03:00)
[2017-12-07] MEDS ORDERED: *HR* Heparin 5,000 UNIT/ML VIAL IVP PRN ×2 (03:00)
[2017-12-07] MEDS ORDERED: *HR* Heparin 5,000 UNIT/ML VIAL IVP ONE (03:00)
[2017-12-07] MEDS: Insulin LISPRO 300 UNITS/3 ML VIAL SQ SCH ×5 (03:09→21:43)
[2017-12-07 04:41] LABS: Basophils # 0.1 K/mcL (0.0-0.2); Basophils % 0.7 %; Eosinophils # 0.3 K/mcL (0.0-0.6); Eosinophils % 2.7 %; Hematocrit 47.6 % (37.5-50.1); Hemoglobin 16.7 g/dL (12.9-16.9); Immature Granulocytes % 0.4 % (0-4); Lymphocytes # 2.4 K/mcL (0.6-4.6); Lymphocytes % 23.1 %; Mean Corpuscular HGB Conc 35.1 g/dL (31.6-35.5); Mean Corpuscular Hemoglobin 30.6 pg (28.0-33.3); Mean Corpuscular Volume 87.3 fL (83.0-100.0); Mean Platelet Volume 10.2 fL (9.4-12.4); Monocytes # 0.6 K/mcL (0.0-1.3); Monocytes % 5.7 %; Platelet Count 232 K/mcL (140-400); Red Blood Count 5.45 M/mcL (4.19-5.50); Red Cell Distribution Width 13.6 % (11.5-14.5); Segmented Neutrophils % 67.4 %
[2017-12-07 05:52] LABS: BUN/Creatinine Ratio 13 (6-26); Blood Urea Nitrogen 13 mg/dL (8-23); Calcium 9.6 mg/dL (8.6-10.3); Carbon Dioxide 21 mEq/L (23-29); Chloride 98 mEq/L (98-107); Glucose 171 mg/dL (70-105); Osmolality,Calculated 284 (280-300); Potassium 3.4 mEq/L (3.5-5.1); Sodium 135 mEq/L (136-145); eGFR For Non-African Americans > 60 (> 60)
[2017-12-07] MEDS: Aspirin 81 MG TAB.CHEW PO SCH (07:53)
[2017-12-07] MEDS: Isosorbide MONOnitrate (24 HR) 30 MG TAB.ER.24H PO SCH (07:53)
[2017-12-07] MEDS: Metoprolol XL (24 HR) Succ 50 MG TAB.ER.24H PO SCH (07:53)
[2017-12-07] MEDS: Cholecalciferol (D-3) 1,000 UNIT TABLET PO SCH (07:53)
[2017-12-07] MEDS: 0.9 % Sodium Chloride 1,000 ML IVC SCH ×3 (09:15→21:32)
--- NOTE | 2017-12-07 10:35 | Event Note ---
Date of Encounter: 12/07/17 Time of Encounter: 10:30 - Cardiology Event Note S/p LHC for unstable angina. He received PCI to his LAD. Unfortunately. last night he developed recurrent chest pain and elevated b/p. EKG completed showed new ST depression in the anteriolateral leads. He was started on heparin gtt. Chest pain resolved overnight. C/o feeling very tired. LHC films reviewed by interventional cardiology. Recommended to have repeat LHC due to symptom and concerning EKG changes. R/B/A of LHC reviewed. Patient agrees to proceed. Continue asa, statin, brilinta, and BB.
--- NOTE | 2017-12-07 11:54 | Internal Med Progress Note ---
Hospitalist Progress Note - Encounter Date of Encounter: 12/07/17 Time of Encounter: 11:57 - Subjective Interval History: 42-year-old male with medical history of hypertension and solitary kidney, hyperlipidemia type 2 diabetes mellitus ex-smoker who was admitted for unstable angina. Patient received left heart catheterization yesterday 12/06, with stent placement. Later in the night, developed new onset chest pain with uncontrolled blood pressure and new EKG changes ST depressions which were not present on admitting EKG. Saw Boss was reconsulted and recommended to start the patient on heparin drip. He also developed acute urinary retention, with placement of Ayala catheter that yielded 1200 mL of urine. Evaluated at the bedside this morning. He complains of fatigue from not having slept overnight, he also complained of hematuria. Cardiology plans to repeat [facility] tonight. - Exam Vitals: Temp Pulse Resp BP Pulse Ox 98.0 F 87 18 136/92 97 12/07/17 11:52 12/07/17 11:52 12/07/17 11:52 12/07/17 11:52 12/07/17 11:52 Exam: Gen: Laying flat in bed, in no form of distress HEENT: Moist oral mucosa, not cyanotic Chest: CTAB CVS: HR and BP WNL, S1, S2 only, no m/g/r Abdomen: Flat, soft, not tender, no palpably enlarged organs Extremities: No pedal edema Neuro : AAoX3, no focal deficits - Assessment and Plan (1) History of unilateral nephrectomy Current Visit: Yes Status: Chronic Assessment and Plan: Continue IV fluid hydration for renal protective strategy. Repeat Mucomyst today prior to left heart catheter. Avoid nephrotoxins. Continue to monitor renal function daily. (2) Hypertension Current Visit: Yes Status: Chronic Assessment and Plan: Now controlled. Continue Dyazide, isosorbide, metoprolol. Continue to monitor. (3) Diabetes Current Visit: Yes Status: Chronic Assessment and Plan: Continue correctional dose insulin. FS Q6H while patient is NPO (4) H/O renal cell carcinoma Current Visit: Yes Status: Acute Assessment and Plan: as in nephrectomy (5) Hyperlipidemia Current Visit: Yes Status: Chronic Assessment and Plan: Zocor, aspirin, cardiac diet (6) GERD (gastroesophageal reflux disease) Current Visit: Yes Status: Chronic Assessment and Plan: continue PPIS (7) DVT prophylaxis Current Visit: Yes Status: Acute Assessment and Plan: ON infusion of heparin (8) Unstable angina Current Visit: Yes Status: Acute Assessment and Plan: Presented with typical cardiac chest pain, elevated troponins, left heart catheter done with mid LAD lesion that was stented. Patient continued to have chest pain last night, with new EKG changes of ST depression. Continue aspirin, Brilinta, heparin, statin Cardiology following and plan for repeat LHC today. (9) Hematuria Current Visit: Yes Status: Acute Assessment and Plan: likely due to ayala placement, continue to monitor, monitor Hb, patient is on heparin drip - Time Spent with Patient Total time spent is greater than 50% in coordination of care (as documented) at patient's floor/unit and/or counseling patient: Plan of Care Discussed with: patient Internal Medicine: Result - Labs CBC & Chem 7: 12/07/17 03:48 12/07/17 03:48 Labs: Short CBC 12/07/17 Range/Units 03:48 WBC 10.4 (4.3-11.1) K/mcL Hgb 16.7 (12.9-16.9) g/dL Hct 47.6 (37.5-50.1) % Plt Count 232 (140-400) K/mcL Neutrophils # 7.0 (1.6-8.9) K/mcL BMP 12/07/17 03:48 Sodium 135 L Potassium 3.4 L Chloride 98 Carbon Dioxide 21 L BUN 13 Creatinine 0.99 Glucose 171 H Calcium 9.6 - ABG Interpretation ABG results: PT/INR, D-dimer PT 11.4 Seconds (9.4-12.1) 12/05/17 11:50 Consult Discharge Plan - Plan Referrals: Mitch Edwards DO [Partnered Physician] - (Office will call patient at home with follow up appointment) [facility] - 12/18/17 10:15 am (Red Team Please fax discharge summary to [phone]) (2) Hypertension Qualifiers: Hypertension type: essential hypertension Qualified Code(s): I10 - Essential (primary) hypertension (3) Diabetes Qualifiers: Diabetes mellitus type: type 2 Diabetes mellitus regional intermodal truck driver insulin use: without senior living use Diabetes mellitus complication status: without complication Qualified Code(s): E11.9 - Type 2 diabetes mellitus without complications (5) Hyperlipidemia Qualifiers: Hyperlipidemia type: unspecified Qualified Code(s): E78.5 - Hyperlipidemia, unspecified (6) GERD (gastroesophageal reflux disease) Qualifiers: Esophagitis presence: esophagitis presence not specified Qualified Code(s): K21.9 - Gastro-esophageal reflux disease without esophagitis (9) Hematuria Qualifiers: Hematuria type: unspecified type Qualified Code(s): R31.9 - Hematuria, unspecified
[2017-12-07] MEDS ORDERED: 0.9 % Sodium Chloride 1,000 ML ONE ×2 (14:22→14:49)
[2017-12-07] MEDS ORDERED: Heparin 1,000 UNITS/500 mL 500 ML ONE (14:23)
[2017-12-07] MEDS ORDERED: ISOVUE-370 200 ML INFUS..BTL IV ONE (14:23)
[2017-12-07] MEDS ORDERED: *HR* Heparin 10,000 UNIT/10 ML VIAL ONE (14:23)
[2017-12-07] MEDS ORDERED: Nitroglycerin 1,000 MCG/10 ML VIAL IV ONE (14:23)
[2017-12-07] MEDS ORDERED: *HR* Midazolam HCl 2 MG/2 ML VIAL ONE (14:49)
[2017-12-07] MEDS ORDERED: *HR* FentaNYL (PF) 100 MCG/2 ML VIAL ONE (14:49)
--- NOTE | 2017-12-07 14:59 | Pre-Sedation Evaluation ---
Pre-sedation evaluation - Pre-sedation checklist Date of procedure: 12/07/17 Procedure: left heart cath Recent Vitals: Last Vital Signs Temp 98.0 F 12/07/17 11:52 Pulse 87 12/07/17 11:52 Resp 18 12/07/17 11:52 BP 136/92 12/07/17 11:52 Pulse Ox 97 12/07/17 11:52 H&P (including ROS) documented in medical record: Yes Previous reaction to sedatives/anesthetics: No Dietary Status: No solid food in preceding 4 hrs and no liquid in preceding 2 hrs Dentition: No loose teeth or bridges ASA Classification *see protocol: CLASS II-Mild systemic disease Plan of Care: Pt appropriate candidate for procedure/moderate/conscious sedation , Risks/benefits of procedure/sedation discussed w/ patient/family Cardiac Registry (Cardio Only) - Functional Capacity Functional Capacity: >=4 METS with symptoms - Clincal Frailty Scale Clinical Frailty Scale: Managing Well
--- NOTE | 2017-12-07 16:12 | Invasive Diagnostic Lab Proc ---
Name: Alex Cheatham Date of Study: 12/07/2017 Date: 1955 Ht: 72.8in Medical Record#: [id number] Age: 62 Wt: 248.46lb Gender: Male BSA: 2.36 Order #: [id number] BMI: 32.93 Physicians Procedure Physician: Gregorio Deshpande MD, [facility] Referring MD: Referring MD: Staff Name Position Time In Rosemarie Gonzales RT Monitor 02:58 PM Nathan Salinas RT (R) Scrub 02:58 PM Isabel Burrell RN Ux Ui Designer 02:58 PM Indications Indication Unstable Angina Procedures Performed Procedure PRQ CARD TWIN STENT W/ANGIO 1 VSL PRQ CARDIAC ANGIO ADDL ART Pre-Procedure Checklist Informed consent is complete signed and on chart. H&P is on chart. ID band is on and ID verified with patient. Patient NPO for procedure The procedure was described for the patient and questions were answered. Blood Pressure: 129/99 ECG is on chart. Rhythm: NSR Plan of Care Patient will tolerate the procedure without complications. Adequate level of comfort will be maintained. Hemodynamics will remain stable Patient will recover from procedure without complications. Respiratory function will be maintained. Cardiac rhythm will remain stable. Patient temperature will be maintained. Patient and/or family have verbalized understanding of the procedure. Patient Education Chief Complaint/Reason for Test: Cardiac Cath Developmental Category: Adult (18-64 years) Developmentally Appropriate for Age: Yes Learning Barriers: None Education Needs: Procedure Education Method: Verbal Information Taught: Cardiac Cath Educational Evaluation: Able to repeat information Intravenous Access Time IV Size Location DC'd Fluid/Drip Rate Units RN 20g 1 /" Patent On Arrival Rt Hand 0.9NaCl Allergies NSAIDS (Non-Steroidal Anti-Inflamma naproxen valdecoxib Hydralazine Vital Signs Time BP (mmHg) HR (bpm) O2 Sat. RR (bpm) LOC 03:00 PM / % 5 = Fully awake and oriented or at pre-proc level 03:00 PM / % 4 = Oriented but drowsy 03:15 PM / % 4 = Oriented but drowsy 03:24 PM 135 / 101 78 95 % 31 03:29 PM 137 / 91 78 98 % 19 03:34 PM 143 / 72 78 94 % 19 03:39 PM 133 / 86 83 93 % 16 02:54 PM 161 / 118 74 99 % 16 02:59 PM 129 / 99 82 97 % 22 03:04 PM 138 / 103 79 95 % 13 03:09 PM 143 / 104 77 96 % 37 03:14 PM 124 / 98 87 94 % 17 03:19 PM 124 / 97 77 96 % 33 Procedural Medications Time Medication Dose Units Method Given By 02:59 PM Oxygen 2 L/min nasal cannula Isabel Burrell RN 02:59 PM Versed 2 mg Intravenous Isabel Burrell RN 02:59 PM Fentanyl 50 mcg Intravenous Isabel Burrell RN 03:04 PM Lidocaine 2% 20 ml Subcutaneous Gregorio Deshpande MD, FACC 03:10 PM Nitroglycerin 150 mcg Intracoronary Gregorio Deshpande MD 03:12 PM Heparin 3000 units Intravenous Isabel Burrell RN 03:34 PM Nitroglycerin 150 mcg Intracoronary Gregorio Deshpande MD ASA Classification: CLASS II- Mild systemic disease (i.e. well-controlled diabetes, hypertension, asthma, cigarette smoking) Chan Score Preprocedure Postprocedure Activity 2- Moves 4 extremities sustained head lift Activity 2- Moves 4 extremities sustained head lift Circulation 2- SBP +/= 20 points of pre-anesthetic level Circulation 2- SBP +/= 20 points of pre-anesthetic level Consciousness 2- Awake and alert oriented x 3 Consciousness 2- Awake and alert oriented x 3 O2 Saturation 2- Able to maintain O2 satruation of 92% on room air O2 Saturation 2- Able to maintain O2 satruation of 92% on room air Respiratory 2- Able to deep breathe and cough well Respiratory 2- Able to deep breathe and cough well Total Score 10 Total Score 10 Contrast Agent: Isovue Diagnostic Contrast: 131 ml Total Contrast: 131 ml Fluoro Dose: 4237 mGy Activated Clotting Time Time Seconds to Clot 03:24 PM 170 03:46 PM 189 Procedure Log Time Note Enter By 02:24 PM 2.5mm x 17mm Cordis EluNIR drug-eluting stent across target lesion- successful Lot #[id number] MID LAD [email or web address] 02:53 PM CathStat 02:53 PM Vitals capture started with the following parameters, Patient=Adult, Interval=5 min, Initial Sxlmiidr=038 mmHg, Deflation Rate=5 mmHg, Cuff placed on Right Arm 02:54 PM HR=74 bpm, XTLG=130/118 mmhg, SpO2=99.0 %, Resp=16 B/min, EtCO2=35 mmHg, Comment=NSR 02:58 PM Pt arrived to medical lab tech instructor 2 at 14:58 kkner :58 PM Rosemarie Gonzales Position: Monitor Time in: :58 :58 PM Nathan Salinas RT (R) Position: Scrub Time in: :58 :58 PM Isabel Burrell RN Position: Ux Ui Designer Time in: :58 :58 PM Patient charges- Angio tray pack, Navilyst 3mm J, Pulse Oximetry and ACIST tubing and transducer kkall:58 PM Case Delayed No kk:58 PM Hair removed from procedure site in procedure lab using clippers. Bilateral groin prepped with Chloraprep by Rosemarie Gonzales, then patient was draped. Skin intact. kkall:58 PM Physician arrived 14:58 ner :59 PM ASA Class CLASS II- Mild systemic disease (i.e. well-controlled diabetes, hypertension, asthma, cigarette smoking) kkallner :59 PM Meet and greet completed :59 PM Sign in performed according to hospital policy. Informed consent was obtained. kkallner :59 PM Meet and greet completed :59 PM Procedure start 14:59 kk:59 PM HR=82 bpm, WMKU=202/99 mmhg, SpO2=97.0 %, Resp=22 B/min 02:59 PM Time: 14:59 Oxygen on at 2 L/min per nasal cannula by Isabel Burrell RN :59 PM Time: 14:59 Versed 2 mg Intravenous Given by Isabel Burrell RN cheryle :59 PM Time: 14:59 Fentanyl 50 mcg Intravenous Given by Isabel Burrell RN carissa 03:00 PM Time: 15:00 Patient comfortable and pain free: Yes [email or web address] 03:00 PM Time: 15:00LOC: 5 = Fully awake and oriented or at pre-proc level kkallner 03:00 PM Clinical Presentation: Unstable angina kkallner 03:04 PM HR=79 bpm, DGRI=519/103 mmhg, SpO2=95.0 %, Resp=13 B/min 03:04 PM Time out was performed according to hospital policy. Conscious sedation and anesthesia was achieved (see medication log with in this report above) kkallner 03:04 PM Time: 15:04 20 ml Lidocaine 2% to right groin Subcutaneous Given by Gregorio Deshpande MD, [facility] [email or web address] 03:05 PM Access obtained by percutaneous puncture. 6Fr 10cm Terumo [place] sheath placed in right Femoral artery. [id number] kkallner 03:08 PM act drawn kkallner 03:08 PM Pressure channel 1 zero failed. 03:08 PM Bolus angiogram of right Femoral complete: 4 ml/sec for a total of 7 mls kkallner 03:08 PM 6Fr CLS 3.5 Runway guide catheter was used to cannulate the PCI vessel successfully. reused? No kkallner 03:08 PM wire removed kkallner 03:09 PM HR=77 bpm, GINF=714/104 mmhg, SpO2=96.0 %, Resp=37 B/min 03:10 PM LCA angiography performed in multiple views. [email or web address] 03:10 PM Time: 15:10 Nitroglycerin 150 mcg Intracoronary Given by Gregorio Deshpande MD kkallner 03:10 PM At 15:24 the ACT was 170 seconds. [email or web address] 03:11 PM .014 Blue Sky 190cm guide wire across target lesion- successful. reused? No kkallner 03:11 PM Inflation device was opened. kkallner 03:12 PM .014 PT Graphix 182cm guide wire across target lesion- successful. reused? No kkallner 03:12 PM Time: 15:12 Heparin 3000 units Intravenous Given by Isabel Burrell RN kkallner 03:14 PM HR=87 bpm, PMWW=545/98 mmhg, SpO2=94.0 %, Resp=17 B/min 03:15 PM Time: 15:00 Patient comfortable and pain free: Yes kkallner 03:15 PM Time: 15:00LOC: 4 = Oriented but drowsy kkallner 03:16 PM 2.5 mm x 6 mm Eminence balloon across target lesion- successful. reused? No Blue Sky Wire kkallner 03:17 PM 2.25 mm x 12 mm Emerge Monorail balloon across target lesion- successful. reused? No PT Graphix kkallner 03:19 PM Balloon inflated @ 10 keith for 18 seconds Emerge balloon kkallner 03:19 PM HR=77 bpm, BJPD=732/97 mmhg, SpO2=96.0 %, Resp=33 B/min 03:19 PM Emerge Balloon catheter removed intact. kkallner 03:20 PM Balloon inflated @ 10 keith for 30 seconds kkallner 03:23 PM Balloon catheter removed intact. [email or web address] 03:24 PM HR=78 bpm, ANLA=549/101 mmhg, SpO2=95.0 %, Resp=31 B/min 03:26 PM Recorded Pressure: Ao, HR=78, Condition=Condition 1 (Aorta) Ao 132/97/114 03:28 PM Stent deployed @ 12 keith for 28 seconds kkallner 03:29 PM HR=78 bpm, EMAO=173/91 mmhg, SpO2=98.0 %, Resp=19 B/min 03:29 PM Stent balloon reinflated @ 18 keith for 15 seconds kkallner 03:30 PM Time: 15:15 Patient comfortable and pain free: Yes kkallner 03:30 PM wire removed kkallner 03:32 PM Time: 15:15LOC: 4 = Oriented but drowsy kkallner 03:32 PM Stent delivery system removed intact. kkallner 03:33 PM 3.5 mm x 6mm NC Emerge balloon across target lesion- successful. reused? No kkallner 03:33 PM Balloon inflated @ 12 keith for 16 seconds kkallner 03:34 PM Time: 15:34 Nitroglycerin 150 mcg Intracoronary Given by Gregorio Deshpande MD kkallner 03:34 PM HR=78 bpm, ZLWE=718/72 mmhg, SpO2=94.0 %, Resp=19 B/min 03:35 PM Recorded Pressure: Ao, HR=85, Condition=Condition 1 (Aorta) Ao 86/72/80 03:36 PM wire and balloon removed kkallner 03:38 PM Procedure completed at 15:38 12/07/2017 [email or web address] 03:38 PM Did you address KARINA flow and Dominance? Yes kkallner 03:39 PM HR=83 bpm, RILN=171/86 mmhg, SpO2=93.0 %, Resp=16 B/min 03:39 PM Sign out completed: Radiation Dose 673.94 mGy, 4236.87 Gy/cm2 Fluoro Time: 7.6 Isovue 370 - 200ml contrast 131 ml given by Gregorio Deshpande MD, FACC. Complications: None. The patient was discharged out of the engineering lab technician in stable condition. Cardiac Rehab Consult needed: YesConfirmed administered medications: Yes kkallner 03:42 PM Isovue 370 - 200ml,1 Bottle(s) used. kkallner 03:42 PM Sheath left in place to be pulled on floor/holding area kkallner 03:42 PM Estimated Blood Loss: minimal kkallner 03:43 PM Post ECG NSR kkallner 03:43 PM Post Blood Pressure 133/86 kkallner 03:43 PM 15:43 Post Pulses Bilateral DP & PT 1+ kkallner 03:43 PM Information taught Cardiac Cath and PCI kkallner 03:43 PM Education needs Procedure, Plan of Care, and Responsibilities of Patient in Care kkallner 03:43 PM Learning barriers :None kkallner 03:43 PM Education Methods Verbal kkallner 03:43 PM Education evaluation Able to repeat information kkallner 03:43 PM Site status No bleeding/hematoma - Rt Groin as reported by Nathan Salinas RT (R) at 15:43 kkallner 03:43 PM Opsite applied kkallner 03:45 PM Report given to Michael RN Pt taken to 2N Room #13. 15:43 kkallner 03:46 PM Plavix, Effient or Brilinta given No Pt given Brillinta by kkallner 03:46 PM Delay to floor No kkallner 03:46 PM Patient out of room: 15:46 kkallner 03:46 PM Family placed in consult room. [email or web address] 03:46 PM Complications: None kkallner 03:46 PM At 15:46 the ACT was 189. seconds. (redrawn) kkallner 03:48 PM new ACT 184 kkallner 03:52 PM Lesion found in 1st Diagonal. Pre Stenosis: 70 Pre KARINA Flow: 3: Complete and Brisk Flow/Perfusion kkallner 03:53 PM Lesion found in Mid LAD. Pre Stenosis: 95 Pre KARINA Flow: 3: Complete and Brisk Flow/Perfusion kkallner 03:53 PM Left Main Coronary Artery with 0% stenosis kkallner 03:53 PM Proximal Left Anterior Descending Coronary Artery with 0% stenosis. If graft is supplying this territory, 0 % stenosis. kkallner 03:53 PM Mid/Distal Left Anterior Descending Coronary Artery and diagonal branches with 95% stenosis. If graft is supplying this area, 0 % stenosis kkallner 03:53 PM Circumflex, Obtuse Marginal, Left Posterior Descending, and Left Posterolateral Coronary Arteries with 0 % stenosis. If graft is supplying this area, 0 % stenosis kkallner 03:53 PM Right Coronary, Right Posterior Descending Arteries with Right Posterolateral and Acute Marginal branches with 0 % stenosis. If graft is supplying this area, 0 % stenosis kkallner 03:53 PM Ramus with 0% stenosis. If graft is supplying this area, 0 % stenosis kkallner Complications Complication None None Hemodynamics Pressures Site Systolic/A Wave Diastolic/V Wave Mean AO 132 97 114 AO 86 72 80 Post Procedure Information Blood Pressure: 133/86 mmHg Rhythm: NSR Post procedural instructions were given Site Checks Time Location Status Staff Sheath In? Note 03:43 PM Rt Groin No bleeding/hematoma Nathan Salinas RT (R) Yes Pulses Time Site Pre-Procedure Post-Procedure Note Bilateral DP & PT 1+ 3:43:00 PM Bilateral DP & PT 1+ Updated by Rosemarie Gonzales, RT (R) on 12/07/2017 4:00:58 PM electronically signed on 12/07/2017 4:03:17 PM with status of Final
[2017-12-07] MEDS ORDERED: *HR* Atropine Sulfate 1 MG/10 ML SYRINGE ONE (16:44)
[2017-12-07] MEDS: amLODIPine 5 MG TABLET PO SCH (21:42)
[2017-12-08] MEDS: 0.9 % Sodium Chloride 1,000 ML IVC SCH ×3 (02:00→21:37)
[2017-12-08 05:18] LABS: Basophils # 0.1 K/mcL (0.0-0.2); Basophils % 0.6 %; Eosinophils # 0.5 K/mcL (0.0-0.6); Eosinophils % 4.9 %; Hematocrit 46.3 % (37.5-50.1); Hemoglobin 15.6 g/dL (12.9-16.9); Immature Granulocytes % 0.3 % (0-4); Lymphocytes # 2.7 K/mcL (0.6-4.6); Lymphocytes % 28.8 %; Mean Corpuscular HGB Conc 33.7 g/dL (31.6-35.5); Mean Corpuscular Hemoglobin 30.6 pg (28.0-33.3); Mean Corpuscular Volume 90.8 fL (83.0-100.0); Monocytes # 0.7 K/mcL (0.0-1.3); Monocytes % 7.1 %; Neutrophils # 5.4 K/mcL (1.6-8.9); Platelet Count 206 K/mcL (140-400); Red Cell Distribution Width 14.1 % (11.5-14.5); Segmented Neutrophils % 58.3 %
[2017-12-08 05:30] LABS: BUN/Creatinine Ratio 11 (6-26); Blood Urea Nitrogen 14 mg/dL (8-23); Calcium 9.5 mg/dL (8.6-10.3); Carbon Dioxide 24 mEq/L (23-29); Chloride 104 mEq/L (98-107); Glucose 131 mg/dL (70-105); Osmolality,Calculated 284 (280-300); Sodium 136 mEq/L (136-145); eGFR For Non-African Americans 59 (> 60)
[2017-12-08] MEDS: Insulin LISPRO 300 UNITS/3 ML VIAL SQ SCH ×4 (08:02→21:40)
[2017-12-08] MEDS: *HR* Ticagrelor 90 MG TABLET PO SCH ×2 (08:08→21:39)
[2017-12-08] MEDS: Metoprolol XL (24 HR) Succ 50 MG TAB.ER.24H PO SCH (08:08)
[2017-12-08] MEDS: Aspirin 81 MG TAB.CHEW PO SCH (08:08)
[2017-12-08] MEDS: Isosorbide MONOnitrate (24 HR) 30 MG TAB.ER.24H PO SCH (08:08)
[2017-12-08] MEDS: amLODIPine 5 MG TABLET PO SCH (08:08)
[2017-12-08] MEDS: Cholecalciferol (D-3) 1,000 UNIT TABLET PO SCH (08:08)
[2017-12-08] MEDS: *HR* Acetylcysteine 20% 600 MG/3 ML ORAL SYRINGE PO SCH ×2 (08:09→21:39)
[2017-12-08] MEDS ORDERED: 0.9 % Sodium Chloride 1,000 ML IVC ONE (08:13)
--- NOTE | 2017-12-08 09:28 | Internal Med Progress Note ---
Hospitalist Progress Note - Encounter Date of Encounter: 12/08/17 Time of Encounter: 09:26 - Subjective Interval History: 42-year-old male with medical history of hypertension and solitary kidney, hyperlipidemia type 2 diabetes mellitus ex-smoker who was admitted for unstable angina. Patient received left heart catheterization yesterday 12/06, with stent placement. Later in the night 12/06, developed new onset chest pain with uncontrolled blood pressure and new EKG changes ST depressions which were not present on admitting EKG. Specifications Writer was reconsulted and recommended to start the patient on heparin drip. He also developed acute urinary retention, with placement of Jean catheter that yielded 1200 mL of urine. He then underwent snother LHC with placement of more stents He is chest pain free and has no complains this a.m His GFR is lower than baseline today, we will give additional 1L bolus, and continue maintenance - Exam Vitals: Temp Pulse Resp BP Pulse Ox 97.6 F 83 18 128/68 98 12/08/17 07:19 12/08/17 07:19 12/08/17 07:19 12/08/17 07:19 12/08/17 07:19 Exam: Gen: Laying flat in bed, in no form of distress HEENT: Moist oral mucosa, not cyanotic Chest: CTAB CVS: HR and BP WNL, S1, S2 only, no m/g/r Abdomen: Flat, soft, not tender, no palpably enlarged organs Extremities: No pedal edema Neuro : AAoX3, no focal deficits - Assessment and Plan (1) History of unilateral nephrectomy Current Visit: Yes Status: Chronic Assessment and Plan: Continue IV fluid hydration for renal protective strategy. give additional 1L IVF this am, patient's GFR slightly lower (2) Hypertension Current Visit: Yes Status: Chronic Assessment and Plan: Now controlled. Continue Dyazide, isosorbide, metoprolol. Continue to monitor. (3) Diabetes Current Visit: Yes Status: Chronic Assessment and Plan: Continue correctional dose insulin. FS Q6H while patient is NPO (4) H/O renal cell carcinoma Current Visit: Yes Status: Acute Assessment and Plan: as in nephrectomy (5) Hyperlipidemia Current Visit: Yes Status: Chronic Assessment and Plan: Zocor, aspirin, cardiac diet (6) GERD (gastroesophageal reflux disease) Current Visit: Yes Status: Chronic Assessment and Plan: continue PPIS (7) DVT prophylaxis Current Visit: Yes Status: Acute Assessment and Plan: ambulate patient (8) Unstable angina Current Visit: Yes Status: Acute Assessment and Plan: Presented with typical cardiac chest pain, elevated troponins, left heart catheter done with mid LAD lesion that was stented. Patient continued to have chest pain last night, with new EKG changes of ST depression. Continue aspirin, Brilinta, BB, statin Cardiology following s/p repat [facility] 12/08 with stent placement. (9) Hematuria Current Visit: Yes Status: Resolved Assessment and Plan: resolved - Time Spent with Patient Total time spent is greater than 50% in coordination of care (as documented) at patient's floor/unit and/or counseling patient: Plan of Care Discussed with: patient Internal Medicine: Result - Labs CBC & Chem 7: 12/08/17 04:28 12/08/17 04:28 Labs: Short CBC 12/08/17 Range/Units 04:28 WBC 9.3 (4.3-11.1) K/mcL Hgb 15.6 (12.9-16.9) g/dL Hct 46.3 (37.5-50.1) % Plt Count 206 (140-400) K/mcL Neutrophils # 5.4 (1.6-8.9) K/mcL BMP 12/08/17 04:28 Sodium 136 Potassium 4.0 Chloride 104 Carbon Dioxide 24 BUN 14 Creatinine 1.23 Glucose 131 H Calcium 9.5 - ABG Interpretation ABG results: PT/INR, D-dimer PT 11.4 Seconds (9.4-12.1) 12/05/17 11:50 Consult Discharge Plan - Plan Referrals: Mitch Edwards DO [Partnered Physician] - (Office will call patient at home with follow up appointment) [place],PC[place] [Primary Care Provider] - 12/18/17 10:15 am (Red Team Please fax discharge summary to [phone]) (2) Hypertension Qualifiers: Hypertension type: essential hypertension Qualified Code(s): I10 - Essential (primary) hypertension (3) Diabetes Qualifiers: Diabetes mellitus type: type 2 Diabetes mellitus intermediate insulin use: without meterman use Diabetes mellitus complication status: without complication Qualified Code(s): E11.9 - Type 2 diabetes mellitus without complications (5) Hyperlipidemia Qualifiers: Hyperlipidemia type: unspecified Qualified Code(s): E78.5 - Hyperlipidemia, unspecified (6) GERD (gastroesophageal reflux disease) Qualifiers: Esophagitis presence: esophagitis presence not specified Qualified Code(s): K21.9 - Gastro-esophageal reflux disease without esophagitis (9) Hematuria Qualifiers: Hematuria type: unspecified type Qualified Code(s): R31.9 - Hematuria, unspecified
--- NOTE | 2017-12-08 10:59 | Cardiology Progress Note ---
Date of Encounter: 12/08/17 Time of Encounter: 10:30 Assessment and Plan (1) Unstable angina Current Visit: Yes Status: Acute Mr. Cheatham presents with the c/o ongoing typical chest pain, SOB, and diaphoresis for three weeks. Symptoms concerning for unstable angina. Troponin negative x3. EKG shows NSR with no acute T/ST wave changes. Stress 2016 here was negative for ischemia.Stress test in September at [facility] with equivocal results per patient. Cardiac risk factors include HTN, HLD, DM, and prior tobacco use. LHC 12/06/17: successful PTCA/TWIN in the mLAD; EF 55% Patient developed recurrent chest pain with ECG changes 10 PM and was taken back to the soap slabber the following day. LHC 12/07/17: successful PTCA/TWIN mLAD; and PTCA to diagonal (jailed vessel); otherwise no significant CAD. Emphasized the importance of uninterrupted DAPT (asa + brilinta) for a minimum of 1 year--savings card provided. Otherwise, continue statin, BB, and nitrates. Post PCI education/limitations discussed. Will coordinate outpatient follow-up with Dr. Deshpande in 1-2 weeks. Cardiology will sign-off. (2) H/O renal cell carcinoma Current Visit: Yes Status: Acute Hx of solitary kidney s/p renal ca SCr stable, GFR lower than baseline. Has been given IVF bolus by primary service. Follows with Dr. Mcclendon as outpatient. Discussion w patient/family: The assessment and plan as outlined above was discussed with the patient and/or family members who expressed understanding and agreement. All questions were answered. Thank you for involving us in the care of your patient. Please call with any questions. The patient will be discussed and reviewed with Dr. Yordan gonzales to be made accordingly. Subjective Principal diagnosis: UA Interval history: Seen and examined. No chest pain/arm/shoulder discomfort described. No dyspnea or shortness of breath. Reports he feels the best he has in years. No issues with right groin cath site. Objective Vital Signs, Last 4 Hours Temp Pulse Resp BP Pulse Ox 12/08/17 07:19 97.6 F 83 18 128/68 98 General: Conversant, No Apparent Distress HEENT: Atraumatic, Normocephaly, Mucus Membranes Moist Neck: No JVD, Normal carotid pulses Cardiac: Reg Rate and Rhythm, Normal S1 and S2, No Murmur Lungs: Normal Breath Sounds, No Wheeze, Rales, Rhonchi Neuro: Alert and responsive, No focal deficits noted Abdomen: Soft, Non-Tender Skin: No rashes noted on visualized skin Musculoskeletal: No Chest Wall Tenderness Extremities: No Clubbing, No Cyanosis, No Edema, Normal Pulses Other: right groin cath site: site stable, mild-moderate amount of ecchymosis at site, small, quarter sized hematoma present with well approximated borders. +2 distal pulses. Results 12/08/17 04:28 12/08/17 04:28 Lab Results 12/08/17 12/08/17 04:28 04:28 WBC 9.3 Hgb 15.6 Hct 46.3 Plt Count 206 Sodium 136 Potassium 4.0 Chloride 104 Carbon Dioxide 24 BUN 14 Creatinine 1.23 Glucose 131 H Calcium 9.5 Active Medications Acetaminophen (Tylenol) 650 mg PO Q6HR PRN PRN Reason: Mild Pain/Fever Stop: 06/06/18 14:03 Last Admin: 12/07/17 16:28 Dose: 650 mg Hydrocodone Bitart/Acetaminophen ([place] 5-325 Mg) 1 tab PO Q6HR PRN PRN Reason: Moderate Pain Stop: 06/06/18 14:03 Acetylcysteine (Acetylcysteine 20%) 600 mg PO BID [facility] Stop: 06/07/18 10:31 Last Admin: 12/08/17 08:09 Dose: 600 mg Amlodipine Besylate (Norvasc) 5 mg PO DAILY [facility] PRN Reason: Protocol Stop: 06/08/18 20:01 Last Admin: 12/08/17 08:08 Dose: 5 mg Aspirin (Aspirin) 81 mg PO DAILY [facility] Stop: 06/07/18 09:01 Last Admin: 12/08/17 08:08 Dose: 81 mg Sodium Chloride (0.9 % Sodium Chloride) 1,000 mls @ 100 mls/hr IVC .Q10H [facility] Stop: 06/07/18 17:31 Last Admin: 12/08/17 02:00 Dose: 100 mls/hr Insulin Human Lispro (Humalog) 0 units SQ HS NAFISA PRN Reason: Protocol Stop: 06/06/18 21:01 Last Admin: 12/07/17 21:43 Dose: Not Given Insulin Human Lispro (Humalog) 0 units SQ TIDWM NAFISA PRN Reason: Protocol Stop: 06/06/18 17:01 Last Admin: 12/08/17 08:02 Dose: Not Given Isosorbide Mononitrate (Imdur) 30 mg PO DAILY [facility] Stop: 06/07/18 09:01 Last Admin: 12/08/17 08:08 Dose: 30 mg Magnesium Hydroxide (Milk Of Magnesia Conc) 10 ml PO DAILY PRN PRN Reason: Constipation Stop: 06/06/18 14:03 Metoprolol Succinate (Toprol Xl) 50 mg PO DAILY [facility] Stop: 06/07/18 09:01 Last Admin: 12/08/17 08:08 Dose: 50 mg Naloxone HCl (Narcan) 0.4 mg IVP Q2MIN PRN PRN Reason: SEE COMMENTS Stop: 06/06/18 14:03 Nitroglycerin (Nitroglycerin) 0.4 mg SL Q5MIN PRN PRN Reason: Chest Pain Stop: 06/06/18 14:44 Last Admin: 12/06/17 22:19 Dose: 0.4 mg Nortriptyline HCl (Pamelor) 50 mg PO HS [facility] Stop: 06/06/18 21:01 Last Admin: 12/07/17 21:43 Dose: 50 mg Omeprazole (Prilosec) 40 mg PO 0630 [facility] Stop: 06/07/18 06:31 Last Admin: 12/07/17 05:05 Dose: 40 mg Ondansetron HCl (Zofran) 4 mg IVP Q8HR PRN PRN Reason: Nausea And Vomiting Stop: 06/06/18 14:03 Oxycodone HCl (Oxycodone Oral Conc) 5 mg SL Q6HR PRN; Protocol PRN Reason: Severe Pain Stop: 06/06/18 14:03 Potassium Chloride (Potassium Chloride) 20 meq PO BID [facility] Stop: 06/06/18 21:01 Last Admin: 12/08/17 09:46 Dose: Not Given Rosuvastatin Calcium (Crestor) 40 mg PO HS [facility] Stop: 06/08/18 21:01 Last Admin: 12/07/17 21:42 Dose: 40 mg Ticagrelor (Brilinta) 90 mg PO BID [facility] Stop: 06/07/18 21:01 Last Admin: 12/08/17 08:08 Dose: 90 mg Triamterene/HCTZ (Dyazide) 1 each PO DAILY [facility] Stop: 06/07/18 09:01 Last Admin: 12/08/17 08:08 Dose: 1 each Vitamin D (Vitamin D) 1,000 unit PO DAILY [facility] Stop: 06/07/18 09:01 Last Admin: 12/08/17 08:08 Dose: 1,000 unit - Imaging and Cardiology Other Results: 12 hour tele: avg HR=83 SR> - EKG Interpretation EKG results cardiology: personally reviewed Consult Discharge Plan - Plan Referrals: Mitch Edwards DO [Partnered Physician] - (Office will call patient at home with follow up appointment) [facility],PCP [Primary Care Provider] - 12/18/17 10:15 am (Red Team Please fax discharge summary to [phone])
[2017-12-09 05:22] LABS: BUN/Creatinine Ratio 14 (6-26); Blood Urea Nitrogen 13 mg/dL (8-23); Calcium 9.3 mg/dL (8.6-10.3); Carbon Dioxide 19 mEq/L (23-29); Chloride 105 mEq/L (98-107); Glucose 159 mg/dL (70-105); Osmolality,Calculated 281 (280-300); Potassium 3.9 mEq/L (3.5-5.1); Sodium 134 mEq/L (136-145); eGFR For Non-African Americans > 60 (> 60)
[2017-12-09 07:03] VITALS: BP 122/77
[2017-12-09] MEDS: 0.9 % Sodium Chloride 1,000 ML IVC SCH (07:41)
[2017-12-09] MEDS: Insulin LISPRO 300 UNITS/3 ML VIAL SQ SCH (07:55)
[2017-12-09] MEDS: Cholecalciferol (D-3) 1,000 UNIT TABLET PO SCH (07:58)
[2017-12-09] MEDS: *HR* Acetylcysteine 20% 600 MG/3 ML ORAL SYRINGE PO SCH (07:59)
[2017-12-09] MEDS: *HR* Ticagrelor 90 MG TABLET PO SCH (07:59)
[2017-12-09] MEDS: Metoprolol XL (24 HR) Succ 50 MG TAB.ER.24H PO SCH (07:59)
[2017-12-09] MEDS: Aspirin 81 MG TAB.CHEW PO SCH (07:59)
[2017-12-09] MEDS: amLODIPine 5 MG TABLET PO SCH (07:59)
[2017-12-09] MEDS: Isosorbide MONOnitrate (24 HR) 30 MG TAB.ER.24H PO SCH (07:59)
--- NOTE | 2017-12-09 09:07 | Discharge Summary ---
- NOTES TO OUTPATIENT PROVIDER Notes to Outpatient Provider: 62 M with MH of CAD, HTN, HLD who was admitted for management of Unstable angina, he is s/p [facility] with stent placement. He has a solitary kidney and his renal function remained stabe throughout admission with IVF hydration and acetycysteine. He is now on Brilnta and ASA , zocor has been discontinued and chnaged to crestor for his HLD, amlodipine has also been added to home regimen for HTN. Follow up with PCP and cardiology, tobacco cessation counselling encouraged Orders not resulted at time of discharge: Pending orders 12/06/17 21:09 EKG [ECG 12 lead ECG] [ECG] Stat 12/07/17 07:00 ECG 12 lead ECG [ECG] Routine 12/10/17 04:00 Chem 7 [Basic Metabolic Panel] AM 0400 Date of Encounter: 12/09/17 Time of Encounter: 09:06 - Discharge Diagnosis (1) History of unilateral nephrectomy Priority: Secondary Status: Chronic (2) Hypertension Priority: Secondary Status: Chronic Qualifiers: Hypertension type: essential hypertension Qualified Code(s): I10 - Essential (primary) hypertension (3) Diabetes Priority: Secondary Status: Chronic Qualifiers: Diabetes mellitus type: type 2 Diabetes mellitus vermin exterminator insulin use: without vermin exterminator use Diabetes mellitus complication status: without complication Qualified Code(s): E11.9 - Type 2 diabetes mellitus without complications (4) H/O renal cell carcinoma Priority: Secondary Status: Chronic (5) Hyperlipidemia Priority: Secondary Status: Chronic Qualifiers: Hyperlipidemia type: unspecified Qualified Code(s): E78.5 - Hyperlipidemia , unspecified (6) GERD (gastroesophageal reflux disease) Priority: Secondary Status: Chronic Qualifiers: Esophagitis presence: esophagitis presence not specified Qualified Code(s) : K21.9 - Gastro-esophageal reflux disease without esophagitis (7) DVT prophylaxis Priority: Primary Status: Resolved (8) Unstable angina Priority: Primary Status: Resolved (9) Hematuria Priority: Primary Status: Resolved Qualifiers: Hematuria type: unspecified type Qualified Code(s): R31.9 - Hematuria, unspecified Hospital course: Mr. Cheatham is a 62 year old male with medical history of coronary artery disease , history of renal cell carcinoma status post nephrectomy, surgery kidney due to nephrectomy, hyperlipidemia, GERD, diabetes mellitus He [place] the [place] workup of chest pain that had been going on with exertion, chest pain was typical cardiac. Admitting workup showed EKG showing NSR with ST depressions, no acute ST elevateions. Initial troponin negativ, BNP wnl, chest x-ray shows no acute process. He was given 325 mg aspirin and IV pepcid At [place], Troponin was negative negative x3. EKG shows NSR with no acute T/ST wave changes. Cardiology was consulted and he went on to get LHC after IVF hydration and mucomyst for renal protection. LHC 12/06/17: successful PTCA/TWIN in the mLAD; EF 55% Patient developed recurrent chest pain with ECG changes 10/4 PM and was taken back to the laboratory apparatus glass grinder the following day. LHC 12/07/17: successful PTCA/TWIN mLAD; and PTCA to diagonal (jailed vessel); otherwise no significant CAD. He is seen and examined at the bedside this a.m and has been chest pain free, renal function has been WNL. He had one episode of urinary retention post -cath and a ayala placed yielded 1200 cc of urine, his urine was pink but cleared afterwards. His vitals have been stable and he is clinically stable to be discharged home Follow up with primary care physician and cardiology as outpatient. Educated on compliance, verbalized understanding Discharge discussed with: patient, nurse Time spent discussing smoking cessation with patient: 3 to 10 minutes - Time Spent with Patient Total time spent providing and/or coordinating discharge services: Less than 30 minutes - Discharge Medications Prescriptions: amLODIPine [Norvasc] 5 mg PO DAILY #30 tablet Rosuvastatin [Crestor] 40 mg PO HS #30 tablet Ticagrelor [Brilinta] 90 mg PO BID #60 tablet Home Medications: Aspirin [Adult Aspirin] 81 mg PO DAILY 12/05/17 [History] Ergocalciferol (VITAMIN D2) [Vitamin D2] 2,000 unit PO DAILY 12/05/17 [History] Isosorbide MONOnitrate (24 HR) [Imdur] 30 mg PO DAILY 12/05/17 [History] Metoprolol Succinate [Toprol Xl] 50 mg PO DAILY 12/05/17 [History] Nortriptyline HCl 50 mg PO HS 12/05/17 [History] Omeprazole [PriLOSEC] 40 mg PO DAILY 12/05/17 [History] Potassium Chloride [K-Tab ER] 20 meq PO BID 12/05/17 [History] Triamterene/HCTZ 37.5/25mg [Dyazide] 1 tab PO DAILY 12/05/17 [History] Rosuvastatin [Crestor] 40 mg PO HS #30 tablet 12/09/17 [Rx] Ticagrelor [Brilinta] 90 mg PO BID #60 tablet 12/09/17 [Rx] amLODIPine [Norvasc] 5 mg PO DAILY #30 tablet 12/09/17 [Rx] Allergies/Adverse Reactions: 3 Allergy/AdvReac Type Severity Reaction Status Date / Time Hydralazine AdvReac Chest Pain Verified 12/06/17 20:41 naproxen AdvReac Gastrointestinal Verified 12/05/17 11:42 Upset NSAIDS (Non-Steroidal AdvReac Gastrointestinal Verified 12/05/17 11:42 Anti-Inflamma Upset valdecoxib [From Bextra] AdvReac Gastrointestinal Verified 12/05/17 11:42 Upset Date of admission: 12/05/17 16:22 Primary care physician: [facility] Consults: 12/06/17 17:23 Consult to Cardiac Rehabilitation-Phase1 [CONS] Routine Comment: Reason for Consult: AMI Call Completed: Yes Consult to Nurse Navigator [CONS] Routine Comment: Discharging clinician: Perfecto Shay Anticipated date of discharge: 12/09/17 - Constitutional Vitals: Temp Pulse Resp BP Pulse Ox 98.0 F 86 18 122/77 96 12/09/17 07:01 12/09/17 07:01 12/09/17 07:01 12/09/17 07:01 12/09/17 07:01 General appearance: Present: A&O X 3, no acute distress, obese Exam: see below - Head Head exam: Present: atraumatic, normocephalic - Eye Eye exam: Present: PERRL, conjuntiva pink, sclera anicteric Pupils: Present: PERRL - Neck Neck exam general surgery: Present: supple, trachea midline. Absent: lymphadenopathy - Respiratory Respiratory exam: Present: CTAB. Absent: accessory muscle use, rales, rhonchi, wheezes - Cardiovascular Cardiovascular exam: Present: RRR, +S1, +S2. Absent: diastolic murmur, gallop, rubs, systolic murmur - GI/Abdominal GI/Abdominal exam: Present: normal bowel sounds, soft, no peritoneal signs. Absent: distended, tenderness - Extremities Exam Extremities exam: Present: warm, radial pulses palpable and symmetrical. Absent : calf tenderness, cyanotic, pedal edema Additional comments: R groin with some bruising at the R femoral site, no visible hematomas - Neurological Exam Neurological exam: Present: alert, CN II-XII intact, oriented X3, no focal deficits. Absent: pronater drift, facial droop, speech deficit - Skin Skin exam: Present: dry, intact - Patient Status Disposition: Home, Self-Care Condition: Good Functional capacity at discharge: independent ambulation Overall status at discharge: patient is back to baseline - Discharge Instructions Instructions: Amlodipine (By mouth), Rosuvastatin (By mouth), Ticagrelor (By mouth), Coronary Artery Disease (DC), Chest Pain (DC) Follow Up With: Mitch Edwards DO [Partnered Physician] - (Office will call patient at home with follow up appointment) [facility],PCP [Primary Care Provider] - 12/18/17 10:15 am (Red Team Please fax discharge summary to [phone]) - Diet and Activity Activity: resume usual activities as tolerated Diet: diabetic diet, low fat, low cholesterol, low salt diet
--- NOTE | 2017-12-10 15:55 | Electrocardiograph Report ---
[place] [address] Test Date: 2017-12-06 Pat Name: Alex Cheatham Department: 110 Room: 2N13 Gender: M State Epidemiologist: : 1955 Requested By: Mitch Edwrads Order Number: [id number] [place] MD: Sagar Strange Measurements Intervals [place] Rate: 73 P: 55 [place]: 166 QRS: -8 QRSD: 104 T: 75 QT: 380 QTc: 406 Interpretive Statements SINUS RHYTHM WITH OCCASIONAL VENTRICULAR PREMATURE COMPLEXES NONSPECIFIC ST & T-WAVE ABNORMALITY Electronically Signed On 12-10-2017 15:54:07 EDT by Sagar Strange
--- NOTE | 2017-12-10 15:59 | Electrocardiograph Report ---
[address] [address] Test Date: 2017-12-06 Pat Name: Alex Cheatham Department: 110 Room: 2N13 Gender: M Data Technician: : 1955 Requested By: Mitch Edwards Order Number: [id number] [place] MD: Sagar Strange Measurements Intervals [place] Rate: 91 P: 51 [place]: 178 QRS: -9 QRSD: 109 T: 33 QT: 389 QTc: 438 Interpretive Statements SINUS RHYTHM WITH FREQUENT VENTRICULAR PREMATURE COMPLEXES NONSPECIFIC ST & T-WAVE ABNORMALITY ABNORMAL RHYTHM ECG Electronically Signed On 12-10-2017 15:57:47 EDT by Sagar Strange
--- NOTE | 2017-12-10 16:03 | Electrocardiograph Report ---
[address] [address] Test Date: 2017-12-06 Pat Name: Alex Cheatham Department: 110 Room: 2N13 Gender: M Field Manager: : 1955 Requested By: Calvin Traylor Order Number: [id number] [place] MD: Sagar Strange Measurements Intervals [place] Rate: 90 P: 50 [place]: 176 QRS: -11 QRSD: 107 T: 72 QT: 346 QTc: 394 Interpretive Statements SINUS RHYTHM WITH FREQUENT VENTRICULAR PREMATURE COMPLEXES NONSPECIFIC ST & T-WAVE ABNORMALITY ABNORMAL RHYTHM ECG Electronically Signed On 12-10-2017 16:01:54 EDT by Sagar Strange
--- NOTE | 2017-12-10 16:06 | Electrocardiograph Report ---
[address] [address] Test Date: 2017-12-06 Pat Name: Alex Cheatham Department: 110 Room: 2N13 Gender: M Behavioral Therapy Coordinator: : 1955 Requested By: Calvin Traylor Order Number: [id number] [place] MD: Sagar Strange Measurements Intervals [place] Rate: 92 P: 47 [place]: 170 QRS: -9 QRSD: 106 T: 68 QT: 385 QTc: 435 Interpretive Statements SINUS RHYTHM WITH FREQUENT VENTRICULAR PREMATURE COMPLEXES NONSPECIFIC ST & T-WAVE ABNORMALITY ABNORMAL RHYTHM ECG Electronically Signed On 12-10-2017 16:03:58 EDT by Sagar Strange
--- NOTE | 2017-12-10 16:06 | Electrocardiograph Report ---
[address] [address] Test Date: 2017-12-06 Pat Name: Alex Cheatham Department: 110 Room: 2N13 Gender: Infection Control Coordinator: : 1955 Requested By: Calvin Traylor Order Number: [id number] [place] MD: Sagar Strange Measurements Intervals [place] Rate: 91 P: 47 [place]: 173 QRS: -11 QRSD: 109 T: 34 QT: 461 QTc: 509 Interpretive Statements SINUS RHYTHM WITH FREQUENT VENTRICULAR PREMATURE COMPLEXES NONSPECIFIC ST & T-WAVE ABNORMALITY PROLONGED QT INTERVAL Electronically Signed On 12-10-2017 16:04:24 EDT by Sagar Strange
== END 2017-12-09 10:28 | disposition home or self-care (01) | DRG 247 ==
LOC: 3BNU 11:32 → EMEROOARM 11:32 → SUATTDRO 13:59 → 3BNU 14:34 → SUATTDRO 16:22 → 2NNU 12-06 17:28
PROVIDERS: ADMIT Student in an Organized Health Care Education/Training Program; ATTEND Internal Medicine